=== PATIENT | male | born 1960 | race Two or more races ===

== ENCOUNTER 2020-01-07 09:07 | Outpatient (REF) | payer OTHER, SELFPAY ==
[2020-01-07 14:39] LABS: Alanine Aminotransferase 32 U/L (0-40); Albumin Level 4.4 g/dL (3.5-5.0); Alkaline Phosphatase 106 U/L (39-117); Anion Gap 13 (12-20); Aspartate Amino Transferase 24 U/L (5-37); Bilirubin Total 0.5 mg/dL (0.0-1.0); Blood Urea Nitrogen 13 mg/dL (9-16); Calcium 9.5 mg/dL (8.4-10.2); Carbon Dioxide 27 mmol/L (22-29); Chloride 105 mmol/L (96-108); Estimated Glomerular Filt Rate > 60; Glucose Fasting 119 mg/dL (60-99); Potassium 4.7 mmol/l (3.3-5.1); Sodium 140 mmol/L (135-145); Total Protein 7.9 g/dL (6.5-8.0)
[2020-01-07 14:52] LABS: Vitamin B12 686 pg/mL (200-900)
[2020-01-13 22:47] LABS: Fructosamine 309 umol/L (205-285)
== END 2020-01-07 09:08 | disposition home or self-care (01) ==
LOC: CF 09:07
PROVIDERS: PCP Internal Medicine; Referring Provider Internal Medicine; Visit Provider Internal Medicine Endocrinology, Diabetes & Metabolism
DX: E11.65 Type 2 diabetes mellitus with hyperglycemia (principal); E66.3 Overweight; E55.9 Vitamin D deficiency, unspecified; E78.5 Hyperlipidemia, unspecified; Z79.4 Long term (current) use of insulin; Z79.899 Other long term (current) drug therapy; Z68.27 Body mass index [BMI] 27.0-27.9, adult
CPT/HCPCS: 80053; 82607; 82947; 82985; 99214

== ENCOUNTER 2020-01-29 06:43 | Day surgery (SDC) | payer OTHER, SELFPAY ==
[2020-01-23 16:08] VITALS: BMI 25.0
--- NOTE | 2020-01-28 09:28 | P.CONAN_ITS ---
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 Overweight (BMI 25.0-29.9) Vitamin D deficiency Surgical History Surgical History Hx of colonoscopy Hx of lithotripsy Social History Social History Alcohol intake: never Smoking Status: Never smoker Advance Directives: No Advance Directives Information Provided: No Advance Directives on File: No Meds Allergies Allergy/AdvReac Type Severity Reaction Status Date / Time No Known Allergies Allergy Verified 01/23/20 16:08 [No Known Allergies*] Exam Exam Date and Time: January 28, 2020927 Height,Weight and Vital Signs: Height 5 ft 6 in Weight 70.307 kg Assessment and Plan Assessment Anesthesia Assessment: Chart Reviewed Documented by User: Mary Nash 01/29/20 07:51 [facility] Past Medical History Medical History Depression Diabetes type 2, uncontrolled Dyslipidemia Hx of renal calculi detention (current) use of insulin Overweight (BMI 25.0-29.9) Vitamin D deficiency Surgical History Surgical History Hx of colonoscopy Hx of lithotripsy Social History Social History Alcohol intake: never Smoking Status: Never smoker Advance Directives: No Advance Directives Information Provided: No Advance Directives on File: No Meds Allergies Allergy/AdvReac Type Severity Reaction Status Date / Time No Known Allergies Allergy Verified 01/23/20 16:08 [No Known Allergies*] Exam Airway TM Dist: >3cm Neck ROM: Full Denture: Upper Partial: Lower Heart: RRR Lungs: CTA BL Assessment and Plan Assessment Anesthesia Assessment: Anesthesia Plan Discussed and Chart Reviewed Final Anesthetic Review NPO: Yes ASA Class: II Final Preanesthetic Review: Meds/Allgs Chart Reviewed and Consent Obtained/Reviewed Patient Risk: Intermediate Procedure Risk: Intermediate Anesthetic Plan Disposition: Standard PACU
[2020-01-29 07:43] LABS: Glucose, Whole Blood 137 mg/dL (60-115)
[2020-01-29 07:46] VITALS: BP 123/72; PULSE 65; RESP 16; TEMP 36.1; O2SAT 95
[2020-01-29] MEDS: Lactated Ringers 1,000 ML 100 ML IVCONT (07:59)
--- NOTE | 2020-01-29 08:53 | PM.PROC ---
Brief Operative Note Date of procedure: 01/29/20 Pre-op diagnosis: colon cancer screening Post-op diagnosis: other (Tubular adenomas, Diverticulosis) Procedure: colonoscopy with excisional polypectomy Anesthesia: MAC (Saad) Surgeon: Nely Taveras Estimated blood loss (mL): 10 Pathology: other (polyp--proximal transverse colon, 40cm) Condition: stable Disposition: PACU
[2020-01-29 08:54] VITALS: BP 97/54; PULSE 72; RESP 16; TEMP 36.4; O2SAT 95
[2020-01-29 09:07] VITALS: BP 103/62; PULSE 65; RESP 16; O2SAT 93
[2020-01-29 09:22] VITALS: BP 106/70; PULSE 64; RESP 16; O2SAT 95
--- NOTE | 2020-01-29 09:38 | HO.POSTANES ---
Post Anesthesia Evaluation Post Anesthesia Evaluation Vital Signs: Vital Signs Temp Pulse Resp BP Pulse Ox 01/29/20 09:22 97.5 F 64 16 106/70 95 01/29/20 09:07 65 16 103/62 93 01/29/20 08:54 97.5 F 72 16 97/54 L 95 01/29/20 07:46 96.9 F 65 16 123/72 95 Anesthesia: Monitored Mental Status: Awake Pain Control: Satisfactory Nausea/Vomiting: None Hydration: Adequate Anesthesia-Related Issues: No Anes. Related Issues
--- NOTE | 2020-02-19 11:18 | OP_ITS ---
SURGEON: Nely Taveras MD PROCEDURE PERFORMED: Colonoscopy with excisional polypectomies x2 using cold biopsy forceps. ESTIMATED BLOOD LOSS: Minimal. COMPLICATIONS: No complications. ANESTHESIA: Monitored. ANESTHESIOLOGIST: Mary Nash MD ASSISTANTS:NONE SPECIMENS: Specimens removed, proximal transverse colon, 40 cm polyp. PREOPERATIVE DIAGNOSES: Colon cancer screening, history of tubular adenomas. PRIMARY CARE PROVIDER: Dr. Watkins/Dr. Capone. POSTOPERATIVE DIAGNOSES: Colonic polyps, diverticulosis, Question raised of benign prostatic hyperplasia. NUTRITION DIRECTOR: Dr. Taveras. FINDINGS: Digital rectal exam revealed prostate to be palpable, slightly enlarged, somewhat nodular. Video colonoscope was introduced without difficulty. It was navigated into the rectosigmoid, sigmoid. Scattered diverticula present. There was some generalized bilious tape turbid residue throughout. Scope advanced into descending transverse ascending colon down into the cecum. Appendiceal orifice was seen. Ileocecal valve was seen with some flushing and suctioning. Prep was overall good. Two polyps removed excisionally as defined in the specimen section. Scope was slowly removed. Anorectal verge was clear. PLAN: Current recommendations for repeat asymptomatic screening in this patient will continue at 5 years. OPERATIONS ADVISOR: No assistant professor. GRAFT OR IMPLANTS: No grafts or implants. CONDITION: Postprocedure, stable. Nely Taveras MD MEN/MODL / [id number] MTDD
== END 2020-01-29 09:43 | disposition home or self-care (01) ==
PROVIDERS: PCP Internal Medicine; Visit Provider Internal Medicine Gastroenterology
PROC: 0DJD8ZZ Inspection of Lower Intestinal Tract, Via Natural or Artificial Opening Endoscopic (ICD-10-PCS; CPT 45378; principal; 2020-01-29 08:30)
DX: Z12.11 Encounter for screening for malignant neoplasm of colon (principal); Z86.010 Personal history of colon polyps; D12.3 Benign neoplasm of transverse colon; D12.5 Benign neoplasm of sigmoid colon; K57.30 Diverticulosis of large intestine without perforation or abscess without bleeding; M81.0 Age-related osteoporosis without current pathological fracture; E78.5 Hyperlipidemia, unspecified; E11.9 Type 2 diabetes mellitus without complications; Z79.4 Long term (current) use of insulin; Z79.899 Other long term (current) drug therapy
CPT/HCPCS: 45380; 82947; 88305

== ENCOUNTER → 2020-04-07 08:48 | Outpatient (BNVA) | payer OTHER, SELFPAY | PROVIDERS: PCP Internal Medicine; Visit Provider Internal Medicine Endocrinology, Diabetes & Metabolism | DX: E11.65 Type 2 diabetes mellitus with hyperglycemia (principal); E78.5 Hyperlipidemia, unspecified; Z79.4 Long term (current) use of insulin; E66.3 Overweight; E55.9 Vitamin D deficiency, unspecified | CPT/HCPCS: 82947; 99212 ==

== ENCOUNTER 2020-04-09 10:09 | Outpatient (REF) | payer OTHER, SELFPAY ==
--- NOTE | 2020-04-09 10:15 | XR_ITS ---
EXAMINATION: XR CHEST CLINICAL INFORMATION: Chest pain. COMPARISON: Chest 06/19/2014 TECHNIQUE: 2 views of the chest were obtained. FINDINGS: No significant abnormality is noted involving the heart, lungs, mediastinum, bony thorax or soft tissues. XR/XR chest 2V IMPRESSION: Unremarkable chest examination.
== END 2020-04-09 10:10 | disposition home or self-care (01) ==
LOC: HO.XRAY 10:09
PROVIDERS: PCP Internal Medicine; Visit Provider Internal Medicine
DX: R07.9 Chest pain, unspecified (principal)
CPT/HCPCS: 71046

== ENCOUNTER 2020-08-26 08:28 | Outpatient (REF) | payer OTHER, SELFPAY ==
[2020-08-26 10:32] LABS: Alanine Aminotransferase 41 U/L (0-40); Albumin Level 4.2 g/dL (3.5-5.0); Alkaline Phosphatase 102 U/L (39-117); Anion Gap 11 (12-20); Aspartate Amino Transferase 29 U/L (5-37); Bilirubin Total 0.7 mg/dL (0.0-1.0); Blood Urea Nitrogen 14 mg/dL (9-16); Calcium 9.4 mg/dL (8.4-10.2); Carbon Dioxide 23 mmol/L (22-29); Chloride 109 mmol/L (96-108); Cholesterol 132 mg/dL; Estimated Glomerular Filt Rate > 60; Glucose Random 121 mg/dL (60-115); HDL Cholesterol 40 mg/dL; LDL Cholesterol Calculated 84 mg/dl; Potassium 4.1 mmol/L (3.3-5.1); Sodium 139 mmol/L (135-145); Total Protein 7.5 g/dL (6.5-8.0); Triglycerides 40 mg/dL
[2020-08-26 10:54] LABS: Vitamin B12 460 pg/mL (200-900)
[2020-08-26 11:58] LABS: Microalbum/Creatinine Ratio Ur 24.3 ug/mg cr
[2020-08-27 19:47] LABS: LDL Cholesterol Direct 84 mg/dL (<100)
== END 2020-08-26 08:29 | disposition home or self-care (01) ==
LOC: HO.LAB 08:28
PROVIDERS: PCP Internal Medicine; Visit Provider Internal Medicine Endocrinology, Diabetes & Metabolism
DX: E11.65 Type 2 diabetes mellitus with hyperglycemia (principal); E11.649 Type 2 diabetes mellitus with hypoglycemia without coma; E78.5 Hyperlipidemia, unspecified; E55.9 Vitamin D deficiency, unspecified; Z79.899 Other long term (current) drug therapy; Z79.4 Long term (current) use of insulin
CPT/HCPCS: 36415; 80053; 80061; 82043; 82607; 82947; 83721; 99212

== ENCOUNTER 2020-09-05 07:41 | Emergency (ER) | payer OTHER, SELFPAY ==
--- NOTE | ~2020-09-05 | CT_ITS ---
EXAMINATION: CT ABDOMEN AND PELVIS WITHOUT CONTRAST CLINICAL INFORMATION: Left flank pain. COMPARISON: Renal ultrasound 02/27/2019 and [facility] March 2011. TECHNIQUE: Multidetector volumetric imaging was performed from the superior aspect of the liver through the pubic symphysis. Sagittal and coronal reformatted images were obtained on the technologist's workstation. This CT examination was performed using dose optimization techniques as appropriate, variously including the following: *Automated exposure control *Adjustment of mA and/or kV according to patient size (this includes techniques or standardized protocols for targeted exams where dose is matched to indication/reason for exam; i.e. extremities or head) *Use of iterative reconstruction technique DLP: 488 mGy-cm FINDINGS: LUNG BASES: The visualized lung bases are unremarkable. LIVER, GALLBLADDER, AND BILIARY TREE: There is a 1 cm low-attenuation lesion high in the medial segment of the left lobe of the liver, probably representing a cyst. The liver is otherwise unremarkable. There is a small gallstone in the gallbladder. PANCREAS: Unremarkable. SPLEEN: Unremarkable. ADRENAL GLANDS: Unremarkable. KIDNEYS AND URETERS: There are multiple bilateral renal stones. Largest right renal stone measures 3 mm. Largest left renal stone measures 4 mm in the lower pole. No hydronephrosis, ureteral dilatation or ureteral stone is seen. There is a 1.2 cm low-attenuation lesion in the upper pole of the left kidney may represent a cyst. BLADDER: Unremarkable. GASTROINTESTINAL TRACT: Diverticulosis of the colon. No evidence of diverticulitis. Small and large bowel is otherwise unremarkable. The appendix is unremarkable. ABDOMINAL WALL: Small umbilical hernia containing fat. There are bilateral inguinal hernias containing fat, right greater than left. LYMPH NODES: Normal. VASCULAR: Unremarkable. PELVIC VISCERA: Unremarkable. OSSEOUS STRUCTURES: There are degenerative changes of the spine. CT/CT abdomen pelvis wo con IMPRESSION: Multiple bilateral renal stones. Probable liver cyst. Small gallstones. Diverticulosis of the colon.
--- NOTE | ~2020-09-05 | XR_ITS ---
EXAMINATION: XR SHOULDER, RIGHT CLINICAL INFORMATION: Right shoulder pain COMPARISON: None TECHNIQUE: AP external rotation, Grashey, scapular Y, and axillary views of the right shoulder. FINDINGS: There is loss of right AC joint with periarticular spurring. This could be impinging on the rotator cuff. The glenohumeral joint space is normal. No visible acute fracture, dislocation or subluxation seen. XR/XR shoulder RT min 2V IMPRESSION: Degenerative arthritic changes right AC joint. No visible acute fracture or dislocation seen.
[2020-09-05 07:49] VITALS: BP 123/75; PULSE 78; RESP 16; TEMP 36.8; O2SAT 96; BMI 54.6
--- NOTE | 2020-09-05 07:52 | ED.GENADULT ---
HPI - General Adult General Chief complaint: Abdominal Pain Stated complaint: shoulder pain,flank pain Time Seen by Provider: 09/05/20 07:45 Source: patient Mode of arrival: ambulatory Limitations: no limitations History of Present Illness HPI narrative: Patient comes emergency room complaining of left-sided flank pain for 2 days, intermittent, mild dysuria, no hematuria. Patient states he has had kidney stones in the past and feels about the same. Last night he had kidney stones, he needed lithotripsy. Patient also complaining of right-sided shoulder pain that started 2 months ago. Patient denies injury. Patient states it hurts when he abducts his arm. Patient denies abdominal pain, no fever chills. Related Data Previous Rx's Medication Instructions Recorded pen needle, diabetic 32 gauge x #400 ea 05/23/20 blood-glucose meter #1 ea 06/02/20 FreeStyle Lancets 28 gauge #300 ea NS 08/26/20 atorvastatin 40 mg tablet 40 mg PO DAILY 90 Days #90 tab 08/26/20 blood sugar diagnostic 1 strip MISCELLANEOUS .3 times a 08/26/20 day 90 Days #300 cap cholecalciferol (vitamin D3) 25 25 mcg PO DAILY 90 Days #90 cap 08/26/20 mcg (1,000 unit) capsule cyclobenzaprine 10 mg tablet 10 mg PO TID PRN #30 tab 08/26/20 empagliflozin 25 mg tablet 25 mg PO DAILY 90 Days #90 tab 08/26/20 insulin aspart U-100 100 unit/mL See Rx Instructions SUBCUT TID 30 08/26/20 subcutaneous solution Days #10 ml insulin glargine 100 unit/mL 13 unit SUBCUT QPM 30 Days #10 ml 08/26/20 subcutaneous solution insulin syringe-needle U-100 0.3 See Rx Instructions MISCELLANEOUS 08/26/20 mL 31 gauge x 5/16 QID #120 ea sitagliptin 50 mg-metformin ER 1 tab PO BID 90 Days #180 tab 08/26/20 1,000 mg tablet,extended release 24h mp Allergies Allergy/AdvReac Type Severity Reaction Status Date / Time No Known Allergies Allergy Verified 07/09/20 08:49 [No Known Allergies*] Review of Systems Review of Systems: Constitutional : No Weight loss, No Fever, No Chills, No Night Sweats, No Fatigue, No Malaise ENT/Mouth : No Hearing loss, No Ear Pain, No Nasal Congestion, No Sinus Pain, No Hoarseness, No sore throat, No Rhinorrhea, No Swallowing Difficulty Eyes: No Eye Pain, No Swelling, No Redness, No Foreign Body, No Discharge, No Vision Changes Cardiovascular : No Chest Pain, No SOB, No Dyspnea on Exertion, No Orthopnea, No Edema, No Palpitations Respiratory : No Cough, No Sputum, No Wheezing, No Smoke Exposure, No Dyspnea Gastrointestinal : No Nausea, No Vomiting, No Diarrhea, No Constipation, No abdominal Pain, No Hematochezia, No Melena Genitourinary : no irregular bleeding, mild Dysuria, No Urinary Frequency, No Hematuria, No Urinary Incontinence, No Urgency, No Flank Pain, No Urinary Flow Changes, No Hesitancy, complaining of left-sided flank pain Musculoskeletal : Complaining of chronic right shoulder pain, worse with abduction,, No Myalgias, No Joint Swelling Skin : No Skin Lesions, No rash Neuro : No Weakness, No Numbness, No Paresthesias, No Loss of Consciousness, No Dizziness, No Headache Psych : No Anxiety/Panic, No Depression, No SI/HI/AH/VH, No Social Issues, Heme/Lymph: No Bruising, No Bleeding,No Lymphadenopathy Endocrine : No Polyuria, No Polydipsia, No Temperature Intolerance PMFSH Past Medical History Medical History Depression Diabetes type 2, uncontrolled Dyslipidemia Hx of renal calculi assisted (current) use of insulin Overweight (BMI 25.0-29.9) Vitamin D deficiency Surgical History Hx of colonoscopy Hx of lithotripsy Family History Family History Mother Diabetes Father Alcoholism Social History Social History Alcohol intake: unknown Patient Tobacco Use Status: Tobacco use Unknown Use of substances other than those prescribed or required for medical reasons: Unknown Advance Directives: No Advance Directives Information Provided: No Physical Exam Vital Signs: Vital Signs: Last Vital Signs Temp 98.3 F 09/05/20 11:27 Pulse 74 09/05/20 11:27 Resp 16 09/05/20 11:27 BP 125/75 09/05/20 11:27 Pulse Ox 96 09/05/20 11:27 Body Mass Index 54.6 Appearance: Alert. Oriented X3. No acute distress. Eyes: Pupils equal, round and reactive to light. ENT: Pharynx normal. Neck: Normal inspection. Neck supple. No lymph nodes noted. No crepitus CVS: Normal heart rate and rhythm. Pulses normal. Normal S1 and S2 Respiratory: No respiratory distress. Breath sounds normal. No Wheezing. No rales Abdomen: Soft and nontender. No rigidity. No distention. Back: Positive CVA tenderness on the left side. Skin: Skin warm and dry. Normal skin color. Normal skin turgor. Extremities: No lower extremity edema. Patient has pain to palpation over the acromioclavicular joint, patient is able to abduct his arm but to 30 degrees maximum due to the pain. The shoulder itself is not swollen, not erythematous, septic joint is not suspected Neuro: Oriented X 3. No motor deficit. No sensory deficit. Moving all extermities. No slurred speech. Course Course Course Narrative: I discussed with the patient that he has renal stones, no ureterolithiasis at this time. Chest x-ray shows chronic changes, no acute changes. Patient likely has a rotator cuff injury. I discussed with the patient it is likely that he did pass a renal stone. At this time, no acute pathology. Regarding his shoulder, patient will likely need an MRI, patient will follow-up with his primary care physician. Medical Decision Making Lab Data Result diagrams: 09/05/20 08:11 09/05/20 08:11 Labs: Lab Results 09/05/20 09/05/20 09/05/20 Range/Units 08:11 08:11 10:56 WBC 6.0 (4.8-10.8) X10*3/uL RBC 5.20 (4.60-5.80) X10*6/uL Hgb 15.3 (14.0-18.0) g/dl Hct 47.1 (42-52) % MCV 90.6 (80-98) fL MCH 29.4 (27.0-33.0) pg MCHC 32.5 (31.0-36.0) g/dl RDW 14.4 (11.0-16.0) % Plt Count 266 (160-400) X10*3/uL MPV 9.4 (9.4-12.4) fL Immature Gran % (Auto) 0.2 (0.0-0.4) % Neut % (Auto) 62.2 (45-73) % Lymph % (Auto) 24.7 (20-40) % [place] % (Auto) 10.4 (2-11) % Eos % (Auto) 2.0 (0-4) % Baso % (Auto) 0.5 (0-2) % Lymph # (Auto) 1.5 (1.2-4.9) X10*3/uL [place] # (Auto) 0.6 (0.1-1.2) X10*3/uL Eos # (Auto) 0.1 (0.0-0.4) X10*3/uL Baso # (Auto) 0.0 (0.0-0.2) X10*3/uL Abs Immat Gran (auto) 0.01 (0.00-0.03) X10*3/uL Absolute Neuts (auto) 3.7 (2.0-8.3) X10*3/uL Absolute Nucleated RBC 0.000 (0.0-0.012) X10*3/uL Nucleated RBC % (auto) 0.0 (0.0-0.2) /100WBC Sodium 140 (135-145) mmol/L Potassium 4.3 (3.3-5.1) mmol/L Chloride 109 H (96-108) mmol/L Carbon Dioxide 23 (22-29) mmol/L Anion Gap 12 (12-20) BUN 17 H (9-16) mg/dL Creatinine 0.79 (0.5-1.4) mg/dL Estim Creat Clear Calc 145.6 Estimated GFR > 60 Random Glucose 159 H (60-115) mg/dL Calcium 9.5 (8.4-10.2) mg/dL Total Bilirubin 0.6 (0.0-1.0) mg/dL Direct Bilirubin 0.2 (0.0-0.5) mg/dL AST 26 (5-37) U/L ALT 35 (0-40) U/L Alkaline Phosphatase 110 (39-117) U/L Total Protein 7.6 (6.5-8.0) g/dL Albumin 4.1 (3.5-5.0) g/dL Urine Color STRAW Urine Appearance CLEAR Urine pH 6.0 (5.0-8.0) Ur Specific [place] 1.020 (1.005-1.025) Urine Protein NEG (NEG-TRACE) MG/DL Urine Glucose (UA) >=1000 H (NEG) MG/DL Urine Ketones NEG (NEG) MG/DL Urine Blood NEG (NEG) Urine Nitrite NEG (NEG) Ur Leukocyte Esterase NEG (NEG) Imaging Data CT scan - abdomen: Radiologist's impression: FINDINGS: LUNG BASES: The visualized lung bases are unremarkable. LIVER, GALLBLADDER, AND BILIARY TREE: There is a 1 cm low-attenuation lesion high in the medial segment of the left lobe of the liver, probably representing a cyst. The liver is otherwise unremarkable. There is a small gallstone in the gallbladder. PANCREAS: Unremarkable. SPLEEN: Unremarkable. ADRENAL GLANDS: Unremarkable. KIDNEYS AND URETERS: There are multiple bilateral renal stones. Largest right renal stone measures 3 mm. Largest left renal stone measures 4 mm in the lower pole. No hydronephrosis, ureteral dilatation or ureteral stone is seen. There is a 1.2 cm low-attenuation lesion in the upper pole of the left kidney may represent a cyst. BLADDER: Unremarkable. GASTROINTESTINAL TRACT: Diverticulosis of the colon. No evidence of diverticulitis. Small and large bowel is otherwise unremarkable. The appendix is unremarkable. ABDOMINAL WALL: Small umbilical hernia containing fat. There are bilateral inguinal hernias containing fat, right greater than left. LYMPH NODES: Normal. VASCULAR: Unremarkable. PELVIC VISCERA: Unremarkable. OSSEOUS STRUCTURES: There are degenerative changes of the spine. CT/CT abdomen pelvis wo con IMPRESSION: Multiple bilateral renal stones. Probable liver cyst. Small gallstones. Diverticulosis of the colon. Chest x-ray: Radiologist's impression: TECHNIQUE: AP external rotation, Grashey, scapular Y, and axillary views of the right shoulder. FINDINGS: There is loss of right AC joint with periarticular spurring. This could be impinging on the rotator cuff. The glenohumeral joint space is normal. No visible acute fracture, dislocation or subluxation seen. XR/XR shoulder RT min 2V IMPRESSION: Degenerative arthritic changes right AC joint. No visible acute fracture or dislocation seen. Discharge Plan Discharge Clinical Impression: Acute flank pain, Chronic right shoulder pain Patient Disposition: Home, Self-Care Instructions: Flank Pain (ED), Shoulder Pain (ED) Additional Instructions: Please follow-up with your primary care physician tomorrow. If you have any worsening or new symptoms, please return to the emergency room or call 911 Prescriptions: No Action (DME) pen needle, diabetic [BD Bharati 2nd Gen Pen Needle] 32 gauge x 5/32 needle See Rx Instructions .MEDSUPPLY Qty: 400 RF: 4 (DME) blood-glucose meter [FreeStyle Lite Meter] Kit See Rx Instructions .ROUTE .MEDSUPPLY Qty: 1 RF: 0 cyclobenzaprine 10 mg tablet 10 mg PO TID PRN (Reason: muscle spasm) Qty: 30 RF: 2 FreeStyle Lite Strips Strip 1 strip miscellaneous .3 times a day 90 Days Qty: 300 RF: 6 atorvastatin 40 mg tablet 40 mg PO DAILY 90 Days Qty: 90 RF: 1 cholecalciferol (vitamin D3) 25 mcg (1,000 unit) capsule 25 mcg PO DAILY 90 Days Qty: 90 RF: 1 Jardiance 25 mg tablet 25 mg PO DAILY 90 Days Qty: 90 RF: 1 insulin aspart U-100 [Novolog U-100 Insulin aspart] 100 unit/mL solution See Rx Instructions subcut TID 30 Days Qty: 10 RF: 6 (DME) lancets [FreeStyle Lancets] 28 gauge misc See Rx Instructions .MEDSUPPLY Qty: 300 RF: 2 Lantus U-100 Insulin 100 unit/mL solution 13 unit subcut QPM 30 Days Qty: 10 RF: 6 insulin syringe-needle U-100 [BD Insulin Syringe Ultra-Fine] 0.3 mL 31 gauge x 5/16 syringe See Rx Instructions miscellaneous QID Qty: 120 RF: 6 Janumet XR 50-1,000 mg tablet, ER multiphase 24 hr 1 tab PO BID 90 Days Qty: 180 RF: 1
[2020-09-05 08:15] LABS: MANUAL DIFF FLAG NO
[2020-09-05 08:16] LABS: Basophils Percent Auto 0.5 % (0-2); Eosinophils Absolute Auto 0.1 X10*3/uL (0.0-0.4); Hematocrit 47.1 % (42-52); Hemoglobin 15.3 g/dl (14.0-18.0); Imm Gran Abs Auto 0.01 X10*3/uL (0.00-0.03); Imm Gran Pct Auto 0.2 % (0.0-0.4); Lymphocytes Absolute Auto 1.5 X10*3/uL (1.2-4.9); Lymphocytes Percent Auto 24.7 % (20-40); Mean Corpuscular HGB Conc 32.5 g/dl (31.0-36.0); Mean Corpuscular Hemoglobin 29.4 pg (27.0-33.0); Mean Corpuscular Volume 90.6 fL (80-98); Mean Platelet Volume 9.4 fL (9.4-12.4); Monocytes Absolute Auto 0.6 X10*3/uL (0.1-1.2); Monocytes Percent Auto 10.4 % (2-11); Neutrophils Absolute Auto 3.7 X10*3/uL (2.0-8.3); Neutrophils Percent Auto 62.2 % (45-73); Platelet Count 266 X10*3/uL (160-400); Red Cell Distribution Width 14.4 % (11.0-16.0)
[2020-09-05 08:57] LABS: Alanine Aminotransferase 35 U/L (0-40); Albumin Level 4.1 g/dL (3.5-5.0); Alkaline Phosphatase 110 U/L (39-117); Anion Gap 12 (12-20); Aspartate Amino Transferase 26 U/L (5-37); Bilirubin Direct 0.2 mg/dL (0.0-0.5); Bilirubin Total 0.6 mg/dL (0.0-1.0); Blood Urea Nitrogen 17 mg/dL (9-16); Calcium 9.5 mg/dL (8.4-10.2); Carbon Dioxide 23 mmol/L (22-29); Chloride 109 mmol/L (96-108); Creatinine Clr Calc Pharmacy 145.6; Estimated Glomerular Filt Rate > 60; Glucose Random 159 mg/dL (60-115); Potassium 4.3 mmol/L (3.3-5.1); Sodium 140 mmol/L (135-145); Total Protein 7.6 g/dL (6.5-8.0)
[2020-09-05 11:13] LABS: Glucose Urine UA >=1000 MG/DL (NEG); Leukocyte Esterase Urine NEG (NEG); Nitrite Urine NEG (NEG); Urine Blood NEG (NEG); Urine Ketones NEG (NEG); Urine Protein NEG (NEG-TRACE)
[2020-09-05 11:15] LABS: Appearance Urine CLEAR; Color Urine STRAW
[2020-09-05 11:27] VITALS: BP 125/75; PULSE 74; RESP 16; TEMP 36.8; O2SAT 96
[2020-09-05 11:30] LABS: Calcium Phosphate Crystals Ur TRACE /LPF; RBC Urine 0-2 /HPF (0); WBC Urine 0 /HPF (0-4)
[2020-09-05 11:47] VITALS: BP 123/76; PULSE 68; RESP 16; O2SAT 97
[2020-09-05] MEDS: Acetaminophen 325 MG TABLET 650 MG PO (11:47)
== END 2020-09-05 12:05 | disposition home or self-care (01) ==
PROVIDERS: Emergency Provider Emergency Medicine; PCP Internal Medicine
DX: R10.9 Unspecified abdominal pain (principal); G89.29 Other chronic pain; M25.511 Pain in right shoulder; E11.9 Type 2 diabetes mellitus without complications; Z79.4 Long term (current) use of insulin; Z87.442 Personal history of urinary calculi
CPT/HCPCS: 36415; 73030; 74176; 80048; 80076; 81001; 81003; 85025; 99284

== ENCOUNTER 2020-09-26 07:52 | Outpatient (REF) | payer OTHER, SELFPAY ==
[2020-09-26 08:07] LABS: MANUAL DIFF FLAG NO
[2020-09-26 08:09] LABS: Basophils Percent Auto 0.6 % (0-2); Eosinophils Absolute Auto 0.2 X10*3/uL (0.0-0.4); Eosinophils Percent Auto 2.5 % (0-4); Hematocrit 47.6 % (42-52); Hemoglobin 15.3 g/dl (14.0-18.0); Imm Gran Abs Auto 0.04 X10*3/uL (0.00-0.03); Imm Gran Pct Auto 0.6 % (0.0-0.4); Lymphocytes Absolute Auto 1.5 X10*3/uL (1.2-4.9); Lymphocytes Percent Auto 23.5 % (20-40); Mean Corpuscular HGB Conc 32.1 g/dl (31.0-36.0); Mean Corpuscular Hemoglobin 29.3 pg (27.0-33.0); Mean Platelet Volume 9.7 fL (9.4-12.4); Monocytes Absolute Auto 0.6 X10*3/uL (0.1-1.2); Monocytes Percent Auto 9.8 % (2-11); Neutrophils Absolute Auto 4.1 X10*3/uL (2.0-8.3); Platelet Count 280 X10*3/uL (160-400); Red Blood Count 5.23 X10*6/uL (4.60-5.80); Red Cell Distribution Width 14.3 % (11.0-16.0); White Blood Count 6.5 X10*3/uL (4.8-10.8)
[2020-09-26 08:47] LABS: Alanine Aminotransferase 36 U/L (0-40); Albumin Level 4.1 g/dL (3.5-5.0); Alkaline Phosphatase 115 U/L (39-117); Anion Gap 13 (12-20); Aspartate Amino Transferase 30 U/L (5-37); Bilirubin Total 0.8 mg/dL (0.0-1.0); Blood Urea Nitrogen 12 mg/dL (9-16); Calcium 9.6 mg/dL (8.4-10.2); Carbon Dioxide 26 mmol/L (22-29); Chloride 106 mmol/L (96-108); Cholesterol 126 mg/dL; Estimated Glomerular Filt Rate > 60; Glucose Fasting 168 mg/dL (60-99); HDL Cholesterol 38 mg/dL; LDL Cholesterol Calculated 77 mg/dl; Potassium 4.5 mmol/L (3.3-5.1); Sodium 140 mmol/L (135-145); Total Protein 7.7 g/dL (6.5-8.0); Triglycerides 55 mg/dL
[2020-09-26 08:48] LABS: Estimated Average Glucose 166 mg/dL; Hemoglobin A1c % 7.4 %
== END 2020-09-26 07:53 | disposition home or self-care (01) ==
LOC: HO.LAB 07:52
PROVIDERS: Visit Provider Internal Medicine
DX: Z00.00 Encounter for general adult medical examination without abnormal findings (principal); E11.9 Type 2 diabetes mellitus without complications
CPT/HCPCS: 36415; 80053; 80061; 83036; 85025

== ENCOUNTER 2020-12-10 12:00 | Outpatient (RCR) | payer OTHER, SELFPAY ==
--- NOTE | 2020-10-31 14:29 | MHC.PT.EP ---
[facility] [place] [address] Office [place] Office [address] [phone] F: [phone] F: [phone] F: [phone] F: [phone] Physical Therapy Plan of Care Date of Evaluation: Date of Surgery: Diagnosis: Pain in unspecified shoulder R shoulder impingement Assessment: Pt is a 60yo M who presents to PT with chronic R shoulder pain. He denies radiating symptoms into UE. Pt presents with current impairments in pain, ROM, strength, endurance, soft tissue restrictions, and posture. He is limited functionally by reaching forward, placing his hand behind his head, and sleeping. His signs and symptoms may be consistent with R shoulder impingement. He is a good candidate for skilled PT services to address current impairments and to facilitate return to PLOF. Frequency and Duration: The patient will be seen 2x/week for 4 weeks Short Term Goals: Pt will be I with HEP to promote self management of symptoms. Pt will report pain < 8/10 after functional mobility Director Of Strategic Programs Goals: Pt will demonstrate full, R shoulder ROM to improve function and QOL. Pt will perform ADLs I with pain < 6/10. Treatment Plan: Modalities to reduce pain, spasms and effusion. Manual therapy to restore motion and function. Therapeutic exercise to improve strength and flexibility. Neuromuscular re-education for posture and balance. Therapeutic activities to return to functional activities of daily living. Electronically signed by: Caroline Best, PT, DPT Please sign and return to therapist. Thank you for your referral.
--- NOTE | 2020-12-15 10:32 | MHC.PT.DC ---
[facility] [place] Office [place] Office [place] Office [address] [phone] F: [phone] F: [phone] F: [phone] F: [phone] Physical Therapy Discharge Report Diagnosis: Pain in unspecified shoulder R shoulder impingement Date of Surgery: Date of Evaluation: 10/31/20 Date of Discharge: 12/15/20 Treatments to Date: 7 Cancellations to Date: 1 No Shows to Date: 1 Discharge Status: Achieved Goals Improved Function Independent with HEP Discharge Summary: Pt last PT visit was 12/10/20. Pt made good progress since SOC. He demonstrated improvements in R shoulder ROM and strength and also had a decrease in pain. He is being D/C from skilled PT services as he has met most of his STGs and made good progress toward his LTGs. He is I with HEP and was provided with updated HEP with GTB on last PT visit. Electronically signed by: Caroline Best, PT, DPT Please sign and return to therapist. Thank you for your referral.
== END 2020-12-15 10:33 | disposition home or self-care (01) ==
LOC: HO.PT 12:00
PROVIDERS: PCP Internal Medicine; Visit Provider Internal Medicine
DX: M25.511 Pain in right shoulder (principal)
CPT/HCPCS: 97110; 97150; 97161; 97530

== ENCOUNTER 2020-12-25 07:57 | Outpatient (REF) | payer OTHER, SELFPAY ==
[2020-12-25 10:54] LABS: Creatinine Urine 72.56 mg/dL; Microalbum/Creatinine Ratio Ur 37.2 ug/mg cr
== END 2020-12-25 07:58 | disposition home or self-care (01) ==
LOC: HO.10HDL 07:57
PROVIDERS: Visit Provider Internal Medicine
DX: E11.9 Type 2 diabetes mellitus without complications (principal)
CPT/HCPCS: 82043

== ENCOUNTER → 2020-12-26 07:52 | Outpatient (BNVA) | payer OTHER, SELFPAY | PROVIDERS: PCP Internal Medicine; Visit Provider Nurse Practitioner Gerontology | DX: E11.649 Type 2 diabetes mellitus with hypoglycemia without coma (principal); E78.5 Hyperlipidemia, unspecified; E55.9 Vitamin D deficiency, unspecified; Z79.4 Long term (current) use of insulin | CPT/HCPCS: 82947; 83036; 99212 ==

== ENCOUNTER → 2021-02-02 08:41 | Outpatient (BNVA) | payer OTHER, SELFPAY | PROVIDERS: PCP Internal Medicine; Visit Provider Orthopaedic Surgery | DX: M67.911 Unspecified disorder of synovium and tendon, right shoulder (principal); E11.649 Type 2 diabetes mellitus with hypoglycemia without coma; Z79.4 Long term (current) use of insulin | CPT/HCPCS: 20610; 99202; J1100 ==

== ENCOUNTER 2021-02-25 14:34 | Outpatient (REF) | payer OTHER, SELFPAY ==
--- NOTE | ~2021-02-25 | MR_ITS ---
EXAMINATION: MR SHOULDER WITHOUT CONTRAST, RIGHT CLINICAL INFORMATION: Right shoulder pain. Clicking, limited range of motion. COMPARISON: Right shoulder radiographs dated 09/05/2020. TECHNIQUE: MRI of the shoulder without contrast was performed on a high-field scanner. FINDINGS: ROTATOR CUFF: Supraspinatus and infraspinatus tendinosis with full-thickness partial tearing through the posterior tendon fibers which extends into the anterior aspect of the infraspinatus tendon. Overall, tearing measures 1.7 x 2.0 cm (AP by ML). No muscle atrophy or fatty infiltration. BICEPS: Normal. CORACOACROMIAL ARCH: The undersurface of the acromion is curved with small subacromial spurs. Moderate acromioclavicular osteoarthritis. LABRUM/CAPSULE: Nondisplaced undersurface tear of the posterosuperior labrum with degenerative signal in the superior labrum. Intact joint capsule. GLENOHUMERAL JOINT/MARROW: Glenoid articular cartilage signal heterogeneity. Tiny marginal osteophytes. Small joint effusion. MR/MR shoulder RT wo con IMPRESSION: 1. Supraspinatus and infraspinatus tendinosis with full-thickness partial tearing involving the posterior supraspinatus tendon with mild extension into the anterior aspect of the infraspinatus tendon. Tearing measures 1.7 x 2.0 cm (AP by ML). 2. Moderate acromioclavicular osteophyte arthritis with small lateral subchondral spurs. 3. Nondisplaced undersurface tear of the posterosuperior labrum. Degenerative signal within the superior labrum. 4. Minimal glenohumeral arthrosis. Small joint effusion.
== END 2021-02-25 14:35 | disposition home or self-care (01) ==
LOC: HO.MRI 14:34
PROVIDERS: PCP Internal Medicine; Visit Provider Orthopaedic Surgery
DX: M67.911 Unspecified disorder of synovium and tendon, right shoulder (principal)
CPT/HCPCS: 73221

== ENCOUNTER → 2021-04-06 12:02 | Outpatient (BNVA) | payer OTHER, SELFPAY | PROVIDERS: Visit Provider Orthopaedic Surgery | DX: M75.120 Complete rotator cuff tear or rupture of unspecified shoulder, not specified as traumatic (principal); E11.69 Type 2 diabetes mellitus with other specified complication; E78.5 Hyperlipidemia, unspecified | CPT/HCPCS: 99212 ==

== ENCOUNTER 2021-04-17 09:00 | Outpatient (REF) | payer OTHER, SELFPAY | END 2021-04-17 09:01 | disposition home or self-care (01) | LOC: HO.10HDL 09:00 | PROVIDERS: Visit Provider Nurse Practitioner Gerontology | DX: E55.9 Vitamin D deficiency, unspecified (principal) | CPT/HCPCS: 36415; 82306 ==

== ENCOUNTER 2021-04-21 08:36 | Outpatient (REF) | payer OTHER, SELFPAY ==
[2021-04-21 10:28] LABS: MANUAL DIFF FLAG NO
[2021-04-21 10:47] LABS: Basophils Percent Auto 0.5 % (0-2); Eosinophils Absolute Auto 0.1 X10*3/uL (0.0-0.4); Eosinophils Percent Auto 1.7 % (0-4); Hematocrit 47.6 % (42.0-52.0); Imm Gran Abs Auto 0.01 X10*3/uL (0.00-0.03); Imm Gran Pct Auto 0.2 % (0.0-0.4); Lymphocytes Absolute Auto 1.3 X10*3/uL (1.2-4.9); Lymphocytes Percent Auto 19.2 % (20-40); Mean Corpuscular HGB Conc 31.5 g/dl (31.0-36.0); Mean Corpuscular Hemoglobin 29.1 pg (27.0-33.0); Mean Corpuscular Volume 92.2 fL (80.0-98.0); Mean Platelet Volume 10.2 fL (9.4-12.4); Monocytes Absolute Auto 0.7 X10*3/uL (0.1-1.2); Monocytes Percent Auto 10.1 % (2-11); Neutrophils Absolute Auto 4.5 x10*3/uL (2.0-8.3); Neutrophils Percent Auto 68.3 % (45-73); Platelet Count 279 X10*3/uL (160-400); Red Blood Count 5.16 X10*6/uL (4.60-5.80); Red Cell Distribution Width 14.9 % (11.0-16.0); White Blood Count 6.6 X10*3/uL (4.8-10.8)
[2021-04-21 10:59] LABS: Alanine Aminotransferase 31 U/L (0-40); Albumin Level 4.1 g/dL (3.5-5.0); Alkaline Phosphatase 114 U/L (39-117); Anion Gap 10 (12-20); Aspartate Amino Transferase 25 U/L (5-37); Bilirubin Total 0.4 mg/dL (0.0-1.0); Blood Urea Nitrogen 19 mg/dL (9-16); Calcium 9.5 mg/dL (8.4-10.2); Carbon Dioxide 24 mmol/L (22-29); Chloride 111 mmol/L (96-108); Cholesterol 123 mg/dL; Estimated Glomerular Filt Rate > 60; Glucose Fasting 140 mg/dL (60-99); HDL Cholesterol 37 mg/dL; LDL Cholesterol Calculated 79 mg/dl; Potassium 4.3 mmol/L (3.3-5.1); Sodium 141 mmol/L (135-145); Total Protein 7.5 g/dL (6.5-8.0); Triglycerides 35 mg/dL
[2021-04-21 11:12] LABS: Creatinine Urine 64.51 mg/dL
[2021-04-21 11:16] LABS: Estimated Average Glucose 157 mg/dL; Hemoglobin A1c % 7.1 %
[2021-04-21 11:19] LABS: Thyroid Stimulating Hormone 0.93 uIU/mL (0.32-4.0)
== END 2021-04-21 08:37 | disposition home or self-care (01) ==
LOC: HO.10HDL 08:36
PROVIDERS: Visit Provider Internal Medicine
DX: Z00.00 Encounter for general adult medical examination without abnormal findings (principal); Z13.0 Encounter for screening for diseases of the blood and blood-forming organs and certain disorders involving the immune mechanism; E11.9 Type 2 diabetes mellitus without complications
CPT/HCPCS: 36415; 80053; 80061; 82043; 83036; 84443; 85025

== ENCOUNTER → 2021-05-14 12:55 | Outpatient (BNVA) | payer OTHER, SELFPAY | PROVIDERS: PCP Internal Medicine; Visit Provider Physician Assistant | DX: M75.120 Complete rotator cuff tear or rupture of unspecified shoulder, not specified as traumatic (principal) | CPT/HCPCS: 99212 ==

== ENCOUNTER 2021-05-20 10:53 | Day surgery (SDC) | payer OTHER, SELFPAY ==
--- NOTE | 2021-05-19 10:57 | HO.ANESPROP2 ---
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 (Acute) Dyslipidemia (Acute) Diabetes type 2, uncontrolled (Acute) Past Medical History Medical History Depression Diabetes type 2, uncontrolled Dyslipidemia Hx of renal calculi Hyperlipidemia associated with type 2 diabetes mellitus 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 Overweight (BMI 25.0-29.9) Vitamin D deficiency Family History Family History Mother Diabetes Father Alcoholism Surgical History Surgical History Hx of colonoscopy Hx of lithotripsy Social History Social History Housing: Apartment Alcohol intake: never Patient Tobacco Use Status: Never used Tobacco e-Cigarette/Vaping Use: Never Used Second Hand Smoke Exposure: No Are you DNR?: No Advance Directives: No Advance Directives Information Provided: Yes service: No Current occupational status: disabled Current occupation: rt handed Cognitive needs: No Hearing needs: No Vision needs: No Meds Allergies Allergy/AdvReac Type Severity Reaction Status Date / Time No Known Allergies Allergy Verified 05/14/21 13:15 [No Known Allergies*] Home Medications Medication Instructions Recorded Confirmed Last Taken Type bupropion HCl 150 mg 24 hr tablet, 150 mg PO BEDTIME 04/17/21 05/13/21 Unknown History extended release zolpidem 10 mg tablet 10 mg PO BEDTIME PRN 04/17/21 05/13/21 Unknown History bupropion HCl 150 mg 24 hr tablet, 1 tab PO BEDTIME 05/20/21 05/20/21 05/20/21 History extended release Exam Exam Date and Time: May 19, 2021 1057 Pertinent Lab Results Pertinent Lab Results: Laboratory Tests 04/21/21 04/21/21 08:38 08:38 WBC 6.6 Hgb 15.0 Hct 47.6 Plt Count 279 Sodium 141 Potassium 4.3 Chloride 111 H Carbon Dioxide 24 BUN 19 H Creatinine 0.80 Laboratory Tests 04/21/21 08:38 Hemoglobin A1c % 7.1 Assessment and Plan Assessment Anesthesia Assessment: Chart Reviewed Documented by User: Chetan Verdin MD 05/20/21 14:58 PMFSH Past Medical History Medical History Depression Diabetes type 2, uncontrolled Dyslipidemia Hx of renal calculi Hyperlipidemia associated with type 2 diabetes mellitus 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 Overweight (BMI 25.0-29.9) Vitamin D deficiency Family History Family History Mother Diabetes Father Alcoholism Family history of problems with anesthesia: No Surgical History Surgical History Hx of colonoscopy Hx of lithotripsy History of Problems with Anesthesia: No Social History Social History Housing: Apartment Alcohol intake: never Patient Tobacco Use Status: Never used Tobacco e-Cigarette/Vaping Use: Never Used Second Hand Smoke Exposure: No Are you DNR?: No Advance Directives: No Advance Directives Information Provided: Yes service: No Current occupational status: disabled Current occupation: rt handed Cognitive needs: No Hearing needs: No Vision needs: No Meds Allergies Allergy/AdvReac Type Severity Reaction Status Date / Time No Known Allergies Allergy Verified 05/14/21 13:15 [No Known Allergies*] Home Medications Medication Instructions Recorded Confirmed Last Taken Type bupropion HCl 150 mg 24 hr tablet, 150 mg PO BEDTIME 04/17/21 05/13/21 Unknown History extended release zolpidem 10 mg tablet 10 mg PO BEDTIME PRN 04/17/21 05/13/21 Unknown History bupropion HCl 150 mg 24 hr tablet, 1 tab PO BEDTIME 05/20/21 05/20/21 05/20/21 History extended release Exam Airway Mallampati Class: II TM Dist: >3cm Neck ROM: Full Partial: Upper and Lower Loose/Missing/Broken Teeth: Yes (Extremly poor dentation . Patient's remaining teeth loose and poor condition ) Heart: rrr Lungs: bl breath sounds Assessment and Plan Assessment Anesthesia Assessment: Anesthesia Plan Discussed Final Anesthetic Review Family History of Problems with Anesthesia: No History of Problems with Anesthesia: No NPO: Yes ASA Class: III Final Preanesthetic Review: Meds/Allgs Chart Reviewed, Consent Obtained/Reviewed and Anes Risks/Benef Reviewed Patient Risk: Intermediate Procedure Risk: Intermediate Anesthetic Plan Anesthetic Plan: GA and Regional Block Disposition: Standard PACU
--- NOTE | 2021-05-20 08:11 | MHC.SHP ---
Pre-Procedural Eval Section A Date of Service: 05/20/21 The patient is an INPATIENT: No Changes since office visit: Yes Patient answered all questions; No Cold of Flu in the past 2 weeks, No New Medical Problems and No Changes in Medication The History & Physical has been completed within 30 days and I have reviewed it.: Yes Section B Chief Complaint: rotator tear Allergies: Allergies Allergy/AdvReac Type Severity Reaction Status Date / Time No Known Allergies Allergy Verified 05/14/21 13:15 [No Known Allergies*] Plan I have reviewed the history and physical and performed a pertinent physical examination on my patient. No changes have occurred unless specified.
[2021-05-20 11:01] VITALS: BP 155/67; PULSE 67; RESP 18; TEMP 36; O2SAT 98; BMI 23.6
[2021-05-20 11:18] LABS: Glucose, Whole Blood 109 mg/dL (60-115)
[2021-05-20] MEDS: Lactated Ringers 1,000 ML 100 ML IVCONT (11:31)
[2021-05-20 15:15] VITALS: BP 127/68; PULSE 54; RESP 18; TEMP 36.4; O2SAT 96
[2021-05-20 15:20] VITALS: BP 111/62; PULSE 60; RESP 22; O2SAT 94
[2021-05-20 15:24] VITALS: BP 118/64; PULSE 55; RESP 24; O2SAT 94
[2021-05-20 15:30] VITALS: BP 112/63; PULSE 55; RESP 24; O2SAT 94
[2021-05-20 16:00] VITALS: BP 133/70; PULSE 57; RESP 16; O2SAT 96
--- NOTE | 2021-05-20 17:18 | P.BOP_ITS ---
Brief Operative Note Date of Service: 05/20/21 Pre-op diagnosis: Right rotator cuff tear Post-op diagnosis: same Procedure: Right rtc repair and SAD Implants: [employer] medial row helacoil x2 and lateral row knotless helacoil Surgeon: Mike Leroy MD Anesthesia: GETA Was an Supervisor Metal Cans used for this Procedure?: Yes Supervisor Metal Cans: Cris Mccrary Estimated blood loss (mL): 20 IV fluids (mL): 1,000 Pathology: none sent Condition: stable Disposition: PACU
--- NOTE | 2021-05-25 16:51 | P.OP_ITS ---
Operative Note Operative Note Date of Service: 05/20/21 Narrative: Pre-op diagnosis: Right rotator cuff tear Post-op diagnosis: same Procedure: Right rtc repair and SAD Implants: [employer] medial row helacoil x2 and lateral row knotless helacoil Surgeon: Mike Leroy MD Anesthesia: GETA Was an Chief Medical Director used for this Procedure?: Yes Chief Medical Director: Cris Mccrary Estimated blood loss (mL): 20 IV fluids (mL): 1,000 Pathology: none sent Condition: stable Disposition: PACU Procedure in detail: Patient was brought to the operating room and placed the the beach chair position. All bony prominences were well padded and the limb was prepped and draped in standard sterile fashion. A time out was called to identify proper site, proper procedure and proper surgeon. IV antibiotics per weight were administered. I began by making a posterolateral stab incision with a 15 blade. A blunt trochar was placed into the glenohumeral joint and I insufflated the joint with saline and a 30 degree arthroscope was placed. I established an outside- in anterior portal just distal to the biceps tendon. I then began my inspection of the glenohumeral joint. There were grade 1 changes of the glenohumeral joint and some synovitis of the anterior interval and superior labrum. This was debr ided with cautery. The biceps tendon and labrum was intact. The gutter was clean and there was a full-thickness undersurface rotator cuff tear of the supraspinatus. I then removed the trochar and entered the subacromial space. A direct lateral portal was then established and I performed a bursectomy. The cuff was then examined. Again a full-thickness tear of the supraspinatus with some moderate retraction but crescentic was identified. I used a bur to debride the footprint down to bleeding bone and then placed 2 medial row anchors. Using a scorpion device to deliver the sutures through the crescentic tear and then using a crossing bridge technique tied these down to 2 lateral anchors. I had excellent reproduction of the normal anatomy of the supraspinatus. I then performed a 5 mm subacromial decompression. Once I was satisfied with the repair final images were captured and I removed all instrumentation. Portals were closed with nylon. Patient was placed in an abduction sling, extubated and brought to the recovery room in stable condition. There were no known complications.
== END 2021-05-20 16:25 | disposition home or self-care (01) ==
LOC: HO.SSS 10:54
PROVIDERS: PCP Internal Medicine Geriatric Medicine; Visit Provider Orthopaedic Surgery
PROC: (CPT 29827; principal; 2021-05-20 13:50)
DX: M75.121 Complete rotator cuff tear or rupture of right shoulder, not specified as traumatic (principal); M65.811 Other synovitis and tenosynovitis, right shoulder; E11.9 Type 2 diabetes mellitus without complications; E78.5 Hyperlipidemia, unspecified; F32.9 Major depressive disorder, single episode, unspecified; E55.9 Vitamin D deficiency, unspecified; Z79.4 Long term (current) use of insulin; Z87.442 Personal history of urinary calculi
CPT/HCPCS: 29827; 29826; 82947; C1713; J0171; J0690; J1100; J2250; J2405; J3010

== ENCOUNTER → 2021-05-25 10:55 | Outpatient (BNVA) | payer OTHER, SELFPAY | PROVIDERS: PCP Internal Medicine Geriatric Medicine; Visit Provider Physician Assistant | DX: Z98.890 Other specified postprocedural states (principal) | CPT/HCPCS: 99212 ==

== ENCOUNTER → 2021-06-19 08:05 | Outpatient (BNVA) | payer OTHER, SELFPAY | PROVIDERS: PCP Internal Medicine; Visit Provider Nurse Practitioner Gerontology | DX: E11.649 Type 2 diabetes mellitus with hypoglycemia without coma (principal); E78.5 Hyperlipidemia, unspecified; E55.9 Vitamin D deficiency, unspecified; Z79.4 Long term (current) use of insulin | CPT/HCPCS: 82947; 99212 ==

== ENCOUNTER → 2021-06-22 10:43 | Outpatient (BNVA) | payer OTHER, SELFPAY | PROVIDERS: PCP Internal Medicine; Visit Provider Physician Assistant | DX: Z47.89 Encounter for other orthopedic aftercare (principal); Z98.890 Other specified postprocedural states | CPT/HCPCS: 99212 ==

== ENCOUNTER 2021-07-28 08:05 | Outpatient (REF) | payer OTHER, SELFPAY ==
[2021-07-28 08:30] LABS: MANUAL DIFF FLAG NO
[2021-07-28 08:54] LABS: Basophils Percent Auto 0.5 % (0-2); Eosinophils Absolute Auto 0.2 X10*3/uL (0.0-0.4); Eosinophils Percent Auto 2.4 % (0-4); Hemoglobin 14.9 g/dl (14.0-18.0); Imm Gran Abs Auto 0.02 X10*3/uL (0.00-0.03); Imm Gran Pct Auto 0.3 % (0.0-0.4); Lymphocytes Absolute Auto 1.4 X10*3/uL (1.2-4.9); Mean Corpuscular HGB Conc 31.7 g/dl (31.0-36.0); Mean Corpuscular Hemoglobin 28.8 pg (27.0-33.0); Mean Corpuscular Volume 90.9 fL (80.0-98.0); Mean Platelet Volume 10.2 fL (9.4-12.4); Monocytes Absolute Auto 0.6 X10*3/uL (0.1-1.2); Monocytes Percent Auto 9.6 % (2-11); Neutrophils Absolute Auto 4.1 x10*3/uL (2.0-8.3); Neutrophils Percent Auto 65.2 % (45-73); Platelet Count 264 X10*3/uL (160-400); Red Blood Count 5.17 X10*6/uL (4.60-5.80); Red Cell Distribution Width 14.4 % (11.0-16.0); White Blood Count 6.2 X10*3/uL (4.8-10.8)
[2021-07-28 09:03] LABS: Estimated Average Glucose 160 mg/dL; Hemoglobin A1c % 7.2 %
[2021-07-28 09:38] LABS: Alanine Aminotransferase 37 U/L (0-40); Alkaline Phosphatase 113 U/L (39-117); Anion Gap 12 (12-20); Aspartate Amino Transferase 30 U/L (5-37); Bilirubin Total 0.4 mg/dL (0.0-1.0); Blood Urea Nitrogen 18 mg/dL (9-16); Calcium 9.4 mg/dL (8.4-10.2); Carbon Dioxide 24 mmol/L (22-29); Chloride 108 mmol/L (96-108); Cholesterol 129 mg/dL; Estimated Glomerular Filt Rate > 60; Glucose Fasting 173 mg/dL (60-99); HDL Cholesterol 38 mg/dL; LDL Cholesterol Calculated 80 mg/dl; Potassium 4.6 mmol/L (3.3-5.1); Sodium 139 mmol/L (135-145); Total Protein 7.5 g/dL (6.5-8.0); Triglycerides 55 mg/dL
[2021-07-28 11:15] LABS: Microalbum/Creatinine Ratio Ur 26.7 ug/mg cr
== END 2021-07-28 08:06 | disposition home or self-care (01) ==
LOC: HO.LAB 08:05
PROVIDERS: PCP Internal Medicine; Visit Provider Internal Medicine
DX: Z00.00 Encounter for general adult medical examination without abnormal findings (principal); E11.69 Type 2 diabetes mellitus with other specified complication; E66.01 Morbid (severe) obesity due to excess calories; Z13.0 Encounter for screening for diseases of the blood and blood-forming organs and certain disorders involving the immune mechanism; Z13.220 Encounter for screening for lipoid disorders
CPT/HCPCS: 36415; 80053; 80061; 82043; 83036; 85025

== ENCOUNTER → 2021-08-06 11:00 | Outpatient (BNVA) | payer OTHER, SELFPAY | PROVIDERS: PCP Internal Medicine; Visit Provider Orthopaedic Surgery | DX: Z47.89 Encounter for other orthopedic aftercare (principal); Z98.890 Other specified postprocedural states | CPT/HCPCS: 99212 ==

== ENCOUNTER 2021-08-20 11:00 | Outpatient (RCR) | payer OTHER, SELFPAY ==
--- NOTE | 2021-05-25 16:04 | MHC.PT.EP ---
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 UPON EXAM HE DEMONSTRATES THE EXPECTED IMPAIRMENTS OF DECREASED ROM AND STRENGTH, ALTERED SOFT TISSUE MOBILITY, ALTERED POSTURE AND POSITIONING AND INCREASED PAIN. FUNCTIONAL LIMITATIONS INCLUDE DECREASED ABILITY TO PERFORM HOMEMAKING AND SELF CARE TASKS, DECREASED ABILITY TO PERFORM REACHING, LIFTING, PUSHING, PULLYING AND CARRYING. HE REPORTS DECREASED ABILITY TO PARTICIPATE IN RECREATIONAL AND COMMUNITY ACTIVITIES AND DISRUPTED SLEEP. PT IS A GOOD CANDIDATE FOR SKILLED PT DUE TO AGE, POTENTIAL REMEDIATION OF IMPAIRMENTS, TYPICAL DISEASE/CONDITION PROGRESSION AND PROGNOSIS, COMORBIDITIES, AND MOTIVATION. PT WOULD BENEFIT FROM TAILORED PROGRAM OF THERAPEUTIC ACTIVITIES, FUNCTIONAL TRAINING, GAIT TRAINING, POSTURAL EDUCATION, NEUROMUSCULAR RE-EDUCATION, AND MODALITIES NEEDED. Frequency and Duration: The patient will be seen 2 X WEEK FOR 12 WEEKS Short Term Goals: INCREASE PASSIVE ROM TO FULL BY WEEK 5 INITIATE HEP AND PROMOTE SELF MANAGEMENT OF SYMPTOMS IN 2 WEEKS [facility] Goals: Full, pain free ROM in 8 weeks Full UE strength, pain free in 12 weeks To perform all homemaking tasks without restriction and pain no greater than 2/10 in [address] object at minimum of 5# into cabinet at shoulder height in 12 weeks Treatment Plan: Modalities to reduce pain, spasms and effusion. Manual therapy to restore motion and function. Therapeutic exercise to improve strength and flexibility. Neuromuscular re-education for posture and balance. Therapeutic activities to return to functional activities of daily living. Electronically signed by: Natalie Vitale PT, DPT Please sign and return to therapist. Thank you for your referral.
--- NOTE | 2021-10-07 08:48 | MHC.PT.DC ---
[facility] [place] Office [place] Office [place] Office [address] Constantin Valencia [address] [phone] F: [phone] F: [phone] F: [phone] F: [phone] Physical Therapy Discharge Report Diagnosis: S/P ROTATOR CUFF REPAIR 05/20/21 Date of Surgery: 05/20/21 Date of Evaluation: 05/25/21 Date of Discharge: 10/07/21 Treatments to Date: 19 Cancellations to Date: 6 No Shows to Date: 2 Discharge Status: Improved Function Independent with HEP Discharge Summary: Pt WAS PROGRESSING WELL - HE HAD TO CANCEL LAST FEW APPTS DUE TO OTHER MEDICAL ISSUES. Electronically signed by: Vika FloresPT Please sign and return to therapist. Thank you for your referral.
== END 2021-10-07 08:47 | disposition home or self-care (01) ==
LOC: HO.PT 11:00
PROVIDERS: Visit Provider Physician Assistant
DX: Z98.890 Other specified postprocedural states (principal)
CPT/HCPCS: 97110; 97140; 97161

== ENCOUNTER 2021-11-11 07:38 | Outpatient (REF) | payer OTHER, SELFPAY ==
[2021-11-11 11:05] LABS: Cholesterol 135 mg/dL; Glucose Fasting 144 mg/dL (60-99); HDL Cholesterol 42 mg/dL; LDL Cholesterol Calculated 85 mg/dl; Triglycerides 40 mg/dL
[2021-11-11 11:12] LABS: Estimated Average Glucose 160 mg/dL; Hemoglobin A1c % 7.2 %
== END 2021-11-11 07:39 | disposition home or self-care (01) ==
LOC: HO.10HDL 07:38
PROVIDERS: Visit Provider Internal Medicine
DX: E11.65 Type 2 diabetes mellitus with hyperglycemia (principal); E78.5 Hyperlipidemia, unspecified
CPT/HCPCS: 36415; 80061; 82947; 83036

== ENCOUNTER 2022-08-04 07:39 | Outpatient (REF) | payer OTHER, SELFPAY ==
[2022-08-04 10:34] LABS: MANUAL DIFF FLAG NO
[2022-08-04 10:46] LABS: Basophils Percent Auto 0.4 % (0-2); Eosinophils Absolute Auto 0.2 X10*3/uL (0.0-0.4); Eosinophils Percent Auto 2.1 % (0-4); Hematocrit 45.8 % (42.0-52.0); Hemoglobin 14.7 g/dl (14.0-18.0); Imm Gran Abs Auto 0.03 X10*3/uL (0.00-0.03); Imm Gran Pct Auto 0.4 % (0.0-0.4); Lymphocytes Absolute Auto 1.2 X10*3/uL (1.2-4.9); Lymphocytes Percent Auto 16.2 % (20-40); Mean Corpuscular HGB Conc 32.1 g/dl (31.0-36.0); Mean Corpuscular Hemoglobin 28.9 pg (27.0-33.0); Mean Platelet Volume 10.6 fL (9.4-12.4); Monocytes Absolute Auto 0.6 X10*3/uL (0.1-1.2); Neutrophils Absolute Auto 5.5 x10*3/uL (2.0-8.3); Neutrophils Percent Auto 72.9 % (45-73); Platelet Count 296 X10*3/uL (160-400); Red Blood Count 5.09 X10*6/uL (4.60-5.80); Red Cell Distribution Width 14.6 % (11.0-16.0); White Blood Count 7.5 X10*3/uL (4.8-10.8)
[2022-08-04 10:54] LABS: Estimated Average Glucose 160 mg/dL; Hemoglobin A1c % 7.2 %
[2022-08-04 11:04] LABS: Alanine Aminotransferase 42 U/L (0-40); Albumin Level 3.9 g/dL (3.5-5.0); Alkaline Phosphatase 111 U/L (39-117); Anion Gap 12 (12-20); Aspartate Amino Transferase 38 U/L (5-37); Bilirubin Total 0.7 mg/dL (0.0-1.0); Blood Urea Nitrogen 13 mg/dL (9-16); Calcium 9.5 mg/dL (8.4-10.2); Carbon Dioxide 25 mmol/L (22-29); Chloride 109 mmol/L (96-108); Cholesterol 124 mg/dL; Estimated Glomerular Filt Rate > 60; Glucose Fasting 127 mg/dL (60-99); HDL Cholesterol 39 mg/dL; LDL Cholesterol Calculated 77 mg/dl; Potassium 4.2 mmol/L (3.3-5.1); Sodium 142 mmol/L (135-145); Total Protein 7.2 g/dL (6.5-8.0); Triglycerides 44 mg/dL
== END 2022-08-04 07:40 | disposition home or self-care (01) ==
LOC: HO.10HDL 07:39
PROVIDERS: Visit Provider Internal Medicine
DX: D64.9 Anemia, unspecified (principal); E78.5 Hyperlipidemia, unspecified; N28.9 Disorder of kidney and ureter, unspecified; R73.9 Hyperglycemia, unspecified
CPT/HCPCS: 36415; 80053; 80061; 83036; 85025

== ENCOUNTER 2022-10-04 06:55 | Outpatient (REF) | payer OTHER, SELFPAY ==
[2022-10-04 07:26] LABS: Estimated Average Glucose 163 mg/dL; Hemoglobin A1c % 7.3 %
[2022-10-04 07:50] LABS: Alanine Aminotransferase 37 U/L (0-40); Albumin Level 3.8 g/dL (3.5-5.0); Alkaline Phosphatase 96 U/L (39-117); Anion Gap 13 (12-20); Aspartate Amino Transferase 28 U/L (5-37); Bilirubin Total 0.6 mg/dL (0.0-1.0); Blood Urea Nitrogen 18 mg/dL (9-16); Carbon Dioxide 22 mmol/L (22-29); Chloride 109 mmol/L (96-108); Estimated Glomerular Filt Rate > 60; Glucose Fasting 143 mg/dL (60-99); Potassium 3.8 mmol/L (3.3-5.1); Sodium 140 mmol/L (135-145); Total Protein 7.3 g/dL (6.5-8.0)
== END 2022-10-04 06:56 | disposition home or self-care (01) ==
LOC: HO.LAB 06:55
PROVIDERS: PCP Internal Medicine; Visit Provider Internal Medicine
DX: N28.9 Disorder of kidney and ureter, unspecified (principal); R73.9 Hyperglycemia, unspecified
CPT/HCPCS: 36415; 80053; 83036

== ENCOUNTER 2022-10-20 08:36 | Outpatient (AMB) | payer OTHER, SELFPAY ==
--- NOTE | 2022-10-20 08:44 | MHC.PC.OV ---
Vital Signs 10/20/22 08:45 Height 5 ft 8 in Weight 162 lb 6 oz BMI 24.7 BP 110/70 Blood Pressure Location Lt brachial Position Sitting Pulse 84 Pulse Source Pulse Oximeter Pulse Oximetry (%) 95 Oxygen Delivery Method Room Air Intake Visit Reasons: PE Intake Note: Patient is here today for a physical. Business Performance Specialist Required: Yes Business Performance Specialist Language: Instructor Knitting Name: Luisa Gomez ([id number]) Information Interpreted: non-clinical & clinical Molding Cutter: Not Required per policy Accompanied by: Self / Same As Patient Allergies No Known Allergies [No Known Allergies*] Allergy (Verified 10/20/22 08:45) Medication List - Last Reconciled 10/20/22 by Fredy Watkins MD atorvastatin 40 mg PO DAILY 90 days blood sugar diagnostic (FreeStyle Lite Strips) 1 strip miscellaneous TID 30 days blood-glucose meter (FreeStyle Lite Meter kit) As directed bupropion HCl 1 tab PO BEDTIME cholecalciferol (vitamin D3) 25 mcg PO DAILY 90 days cyclobenzaprine 10 mg PO TID PRN empagliflozin (Jardiance) 25 mg PO DAILY 90 days glucose (Dex4 Glucose) 12 grams (3 x 4 gram) PO Q15M PRN insulin aspart U-100 (Novolog U-100 Insulin aspart) 5-7 units with meals subcut 3 times a day; 30 days insulin glargine (Lantus U-100 Insulin) 15 units (0.15 mL) subcut QPM 30 days insulin syringe-needle U-100 (BD Insulin Syringe Ultra-Fine) 1 each miscellaneous 4 times a day; lancets (FreeStyle Lancets) Three times a day [Medline Remedy with Olivamine Skin Repair Cream As directed] naproxen 500 mg PO BID PRN omeprazole 20 mg PO DAILY oxycodone-acetaminophen 5-325 mg (Percocet) 1 tab PO Q4-6H PRN 7 days pen needle, diabetic (BD Bharati 2nd Gen Pen Needle) 5 times a day sitagliptin phos-metformin 50-1,000 mg ER (Janumet XR) 1 tab PO BID 90 days zolpidem 10 mg PO BEDTIME PRN Tobacco use date assessed: 10/20/22 Fall risk assessment: No Falls in past year Last assessed Fall Risk: 10/20/22 Dental Screening Dental Screen Date: 10/20/22 Did you have a dental visit in the last 12 months?: Yes Did you have a dental problem in the last 6 months where you did not have access to dental care?: No Was dental information given to patient?: No HPI PE HPI Details DM hyperlipidemia and insomnia; sees endo in [place]; doing well; compliant [facility] Medical History (Updated 10/20/22 @ 09:13 by Fredy Watkins MD) Depression Diabetes type 2, uncontrolled Dyslipidemia Hx of renal calculi Hyperlipidemia associated with type 2 diabetes mellitus 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 Overweight (BMI 25.0-29.9) Vitamin D deficiency Surgical History Hx of colonoscopy Hx of lithotripsy Hx of shoulder surgery Family History Mother Diabetes Father Alcoholism Other Substance use disorder Social History Housing: Apartment Alcohol intake: never Patient Tobacco Use Status: Never used Tobacco e-Cigarette/Vaping Use: Never Used Second Hand Smoke Exposure: No service: No Current occupational status: disabled Current occupation: rt handed Cognitive needs: No Hearing needs: No Vision needs: No Questionnaire Thrive Questionnaire Date Thrive assessed: 03/24/22 GALEN-7 AMB Questionnaire GALEN-7 Date GALEN - 7 assessed: 06/22/22 Source: Developed by Drs. Juve Hutton, Huong Shannon, Bryon Reis and colleagues, with an educational murray from [employer]. Review of Systems Const Denies chills, Denies fatigue, Denies headache(s) and Denies weight loss Eyes Denies change in vision, Denies diplopia and Denies eye pain ENT Denies vertigo, Denies dizziness, Denies headache(s) and Denies nasal discharge Card Denies chest pain, Denies rapid heart rate and Denies dyspnea on exertion Resp Denies chest congestion, Denies cough, Denies pain with cough and Denies dyspnea on exertion GI Denies abdominal pain, Denies hematochezia and Denies change in bowel habits Musc Denies myalgias, Denies arthralgias and Denies joint swelling Skin/Breast Denies lesions and Denies unusual bruising Neuro Denies vertigo, Denies dizziness, Denies headache(s) and Denies focal weakness Endo Denies fatigue Physical exam (Primary Care) Vital Signs: Last Vital Signs Pulse 84 10/20/22 08:45 BP 110/70 10/20/22 08:45 Pulse Ox 95 10/20/22 08:45 Oxygen Delivery Method Room Air 10/20/22 08:45 BMI result Body Mass Index 24.7 Tobacco/Smoking Status: Tobacco use Status Tobacco use date assessed 10/20/22 10/20/22 08:54 Patient Tobacco Use Status Never used Tobacco 10/20/22 08:54 e-Cigarette/Vaping Use Never Used 10/20/22 08:54 Thrive Assessment: Date of Thrive Assessment Date Thrive assessed 03/24/22 10/20/22 08:54 Advance Care Planning discussion: On file, no changes Forms completed: Health Care Proxy Const General: cooperative, healthy appearing and no acute distress Orientation/consciousness: oriented to person, oriented to place and oriented to time HENMT Head: Yes normal to inspection, Yes normocephalic and Yes atraumatic Mouth: Normal oral and palatal mucosa present and tongue normal Throat: Yes posterior oropharynx normal and Yes uvula midline Eyes General: appearance normal, both eyes and all related structures Neck Neck: Yes normal visual inspection, Yes full ROM and Yes no lymphadenopathy Thyroid: Thyroid normal Carotids: normal carotid upstroke Chest Chest palpation & inspection: normal inspection of the chest Resp Effort & Inspection: normal respiratory effort and able to speak in complete sentences Auscultation: clear to auscultation bilaterally Cardio Jugular venous distension: no JVD Palpation: normal PMI Rate: regular rate Rhythm: regular rhythm Heart sounds: S1 normal heart sound present and S2 normal heart sound present GI Inspection: Yes normal to inspection Palpation (GI): Soft to palpation and No hepatosplenomegaly present Auscultation: normal bowel sounds General: Yes no CVA tenderness Back/Spine/Pelvis Back: no CVA tenderness Skin General skin exam: no rashes or lesions noted Neuro General: oriented to person, oriented to place and oriented to time Extrem General: Yes normal to inspection and Yes full ROM Assessment and Plan Assessment & Plan (1) Physical exam: Code(s): Z00.00 - Encounter for general adult medical examination without abnormal findings Plan: stable (2) Hyperlipidemia associated with type 2 diabetes mellitus: Code(s): E11.69 - Type 2 diabetes mellitus with other specified complication; E78.5 - Hyperlipidemia, unspecified Plan: stable; same meds (3) Insomnia: Code(s): G47.00 - Insomnia, unspecified Plan: stable; same meds (4) Type 2 diabetes mellitus with hyperlipidemia: Code(s): E11.69 - Type 2 diabetes mellitus with other specified complication; E78.5 - Hyperlipidemia, unspecified Plan: as per endo Orders: Orders Comprehensive Strong. Panel Fast Today N28.9 - Disorder of kidney and ureter, unspecified Hemoglobin A1c Today R73.9 - Hyperglycemia, unspecified Lipid Panel Today E78.5 - Hyperlipidemia, unspecified Prostate Specific Antigen Scr Today Z00.00 - Encounter for general adult medical examination without abnormal findings Thyroid Stimulating Hormone Today E03.9 - Hypothyroidism, unspecified Microalbumin, Random (w Creat) Today E11.69 - Type 2 diabetes mellitus with other specified complication, E66.01 - Morbid (severe) obesity due to excess calories Complete Blood Count Auto Diff Today D64.9 - Anemia, unspecified Medications: Changed From blood sugar diagnostic (FreeStyle Lite Strips) FUTURE REFILLS FROM PCP. 1 strip miscellaneous TID 30 days 100 caps 0RF E11.65 - Type 2 diabetes mellitus with hyperglycemia To blood sugar diagnostic (FreeStyle Lite Strips) FUTURE REFILLS FROM PCP. 1 strip miscellaneous TID 100 caps 8RF 90 days E11.65 - Type 2 diabetes mellitus with hyperglycemia Coding Level of Care Code Est Pt Prev Care 40-64y([id number]) Diagnoses Physical exam Z00.00 Hyperlipidemia associated with type 2 diabetes mellitus E11.69; E78.5 Insomnia G47.00 Type 2 diabetes mellitus with hyperlipidemia E11.69; E78.5 Additional Codes Vital Signs *Quality* - Advance Care Planning discussion: On file, no changes ([id number])
[2022-10-20 08:45] VITALS: BP 110/70; PULSE 84; O2SAT 95; BMI 24.7
== END 2022-10-20 09:22 | disposition home or self-care (01) ==
PROVIDERS: PCP Internal Medicine; Visit Provider Internal Medicine
DX: Z00.00 Encounter for general adult medical examination without abnormal findings (principal); E11.69 Type 2 diabetes mellitus with other specified complication; E78.5 Hyperlipidemia, unspecified; G47.00 Insomnia, unspecified
CPT/HCPCS: 1123F; 99396

== ENCOUNTER 2023-01-19 08:02 | Outpatient (REF) | payer OTHER, SELFPAY ==
[2023-01-19 10:17] LABS: MANUAL DIFF FLAG NO
[2023-01-19 10:25] LABS: Basophils Absolute Auto 0.1 X10*3/uL (0.0-0.2); Basophils Percent Auto 0.7 % (0-2); Eosinophils Absolute Auto 0.2 X10*3/uL (0.0-0.4); Eosinophils Percent Auto 2.2 % (0-4); Hematocrit 48.5 % (42.0-52.0); Hemoglobin 15.5 g/dl (14.0-18.0); Imm Gran Abs Auto 0.03 X10*3/uL (0.00-0.03); Imm Gran Pct Auto 0.4 % (0.0-0.4); Lymphocytes Absolute Auto 1.4 X10*3/uL (1.2-4.9); Lymphocytes Percent Auto 19.2 % (20-40); Mean Corpuscular Hemoglobin 29.3 pg (27.0-33.0); Mean Corpuscular Volume 91.7 fL (80.0-98.0); Mean Platelet Volume 10.2 fL (9.4-12.4); Monocytes Absolute Auto 0.6 X10*3/uL (0.1-1.2); Monocytes Percent Auto 8.6 % (2-11); Neutrophils Percent Auto 68.9 % (45-73); Platelet Count 279 X10*3/uL (160-400); Red Blood Count 5.29 X10*6/uL (4.60-5.80); Red Cell Distribution Width 14.6 % (11.0-16.0); White Blood Count 7.2 X10*3/uL (4.8-10.8)
[2023-01-19 10:46] LABS: Estimated Average Glucose 157 mg/dL; Hemoglobin A1c % 7.1 % (<6.0)
[2023-01-19 10:53] LABS: Alanine Aminotransferase 29 U/L (0-40); Alkaline Phosphatase 99 U/L (39-117); Anion Gap 10 (12-20); Aspartate Amino Transferase 27 U/L (5-37); Bilirubin Total 0.5 mg/dL (0.0-1.0); Blood Urea Nitrogen 19 mg/dL (9-16); Calcium 9.8 mg/dL (8.4-10.2); Carbon Dioxide 24 mmol/L (22-29); Chloride 109 mmol/L (96-108); Cholesterol 146 mg/dL (<200); Estimated Glomerular Filt Rate > 60; Glucose Fasting 164 mg/dL (60-99); HDL Cholesterol 40 mg/dL (>40); LDL Cholesterol Calculated 99 mg/dL (<100); Potassium 4.2 mmol/L (3.3-5.1); Sodium 139 mmol/L (135-145); Total Protein 7.7 g/dL (6.5-8.0); Triglycerides 38 mg/dL (<150)
[2023-01-19 11:06] LABS: Prostate Specific Antigen Scr 0.14 ng/mL (<0.05-4.0)
[2023-01-19 11:08] LABS: Creatinine Urine 62.77 mg/dL; Microalbum/Creatinine Ratio Ur 36.6 ug/mg cr (<30)
[2023-01-19 11:10] LABS: Thyroid Stimulating Hormone 0.87 uIU/mL (0.32-4.0)
== END 2023-01-19 08:03 | disposition home or self-care (01) ==
LOC: HO.10HDL 08:02
PROVIDERS: Visit Provider Internal Medicine
DX: Z00.00 Encounter for general adult medical examination without abnormal findings (principal); D64.9 Anemia, unspecified; N28.9 Disorder of kidney and ureter, unspecified; E78.5 Hyperlipidemia, unspecified; E11.69 Type 2 diabetes mellitus with other specified complication; E66.01 Morbid (severe) obesity due to excess calories; E11.65 Type 2 diabetes mellitus with hyperglycemia; E03.9 Hypothyroidism, unspecified; Z12.5 Encounter for screening for malignant neoplasm of prostate
CPT/HCPCS: 36415; 80053; 80061; 82043; 82570; 83036; 84153; 84443; 85025

== ENCOUNTER 2023-01-26 07:36 | Outpatient (AMB) | payer OTHER, SELFPAY ==
[2023-01-26 08:31] VITALS: BP 140/70; PULSE 60; O2SAT 97; BMI 24.5
--- NOTE | 2023-01-26 08:31 | MHC.PC.OV ---
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 policy Accompanied by: Self / Same As Patient Allergies No Known Allergies [No Known Allergies*] Allergy (Verified 01/26/23 08:31) Medication List - Last Reconciled 01/26/23 by Fredy Watkins MD atorvastatin 40 mg PO DAILY 90 days blood sugar diagnostic (FreeStyle Lite Strips) 1 strip miscellaneous TID 90 days blood-glucose meter (FreeStyle Lite Meter kit) As directed bupropion HCl 1 tab PO BEDTIME cholecalciferol (vitamin D3) 25 mcg PO DAILY 90 days cyclobenzaprine 10 mg PO TID PRN empagliflozin (Jardiance) 25 mg PO DAILY 90 days glucose (Dex4 Glucose) 12 grams (3 x 4 gram) PO Q15M PRN insulin aspart U-100 (Novolog U-100 Insulin aspart) 5-7 units with meals subcut 3 times a day; 30 days insulin glargine (Lantus U-100 Insulin) 15 units (0.15 mL) subcut QPM 30 days insulin syringe-needle U-100 (BD Insulin Syringe Ultra-Fine) 1 each miscellaneous 4 times a day; lancets (FreeStyle Lancets) Three times a day [Medline Remedy with Olivamine Skin Repair Cream As directed] naproxen 500 mg PO BID PRN omeprazole 20 mg PO DAILY oxycodone-acetaminophen 5-325 mg (Percocet) 1 tab PO Q4-6H PRN 7 days pen needle, diabetic (BD Bharati 2nd Gen Pen Needle) 5 times a day sitagliptin phos-metformin 50-1,000 mg ER (Janumet XR) 1 tab PO BID 90 days zolpidem 10 mg PO BEDTIME PRN Tobacco use date assessed: 10/20/22 Fall risk assessment: No Falls in past year Last assessed Fall Risk: 01/26/23 Dental Screening Dental Screen Date: 01/26/23 Did you have a dental visit in the last 12 months?: Yes Did you have a dental problem in the last 6 months where you did not have access to dental care?: No Was dental information given to patient?: Patient has dentist HPI 3 month f/u HPI Details diabetes hyperlipidemia and gerd on rx; doing well; compliant [facility] Medical History Hyperlipidemia associated with type 2 diabetes mellitus Hx of renal calculi Depression Vitamin D deficiency Overweight (BMI 25.0-29.9) care home (current) use of insulin Dyslipidemia Diabetes type 2, uncontrolled Surgical History Hx of shoulder surgery Hx of colonoscopy Hx of lithotripsy Family History Mother Diabetes Father Alcoholism Other Substance use disorder Social History Housing: Apartment Alcohol intake: never Patient Tobacco Use Status: Never used Tobacco e-Cigarette/Vaping Use: Never Used Second Hand Smoke Exposure: No service: No Current occupational status: disabled Current occupation: rt handed Cognitive needs: No Hearing needs: No Vision needs: No Questionnaire PHQ-9 Over the last 2 weeks, how often have you been bothered by any of the following problems? 1. Little interest or pleasure in doing things: not at all 2. Feeling down, depressed, or hopeless: not at all 3. Trouble falling or staying asleep, or sleeping too much: not at all 4. Feeling tired or having little energy: not at all 5. Poor appetite or overeating: not at all 6. Feeling bad about yourself - or that you are a failure or have let yourself or your family down: not at all 7. Trouble concentrating on things, such as reading the newspaper or watching television: not at all 8. Moving or speaking so slowly that other people could have noticed. Or the opposite - being so fidgety or restless that you have been moving around a lot more than usual: not at all 9. Thoughts that you would be better off or of hurting yourself in some way: not at all Total score: 0 Depression Screening Interpretation: Negative Depression Screening Done: Yes 95806 - PHQ-9 Billing: Yes Source: Developed by Drs. Juve Hutton, Bryon Alvarado and colleagues, with an educational murray from [employer]. Thrive Questionnaire Date Thrive assessed: 03/24/22 AUDIT C Alcohol Use Questionnaire (AUDIT-C) 1. How often do you have a drink containing alcohol?: Never Total Score: 0 Score Reviewed/Action Taken: Yes GALEN-7 AMB Questionnaire GALEN-7 Date GALEN - 7 assessed: 06/22/22 Source: Developed by Drs. Juve Hutton, Bryon Alvarado and colleagues, with an educational murray from [employer]. Review of Systems Const Denies chills, Denies headache(s) and Denies weight loss ENT Denies headache(s) Card Denies chest pain, Denies syncope, Denies irregular heart rhythm and Denies dyspnea Resp Denies chest congestion, Denies cough and Denies dyspnea GI Denies abdominal pain, Denies change in stool character, Denies nausea and Denies vomiting Musc Denies deformity and Denies joint swelling Neuro Denies syncope and Denies headache(s) Physical exam (Primary Care) Vital Signs: Last Vital Signs Pulse 60 01/26/23 08:31 BP 140/70 H 01/26/23 08:31 Pulse Ox 97 01/26/23 08:31 Oxygen Delivery Method Room Air 01/26/23 08:31 BMI result Body Mass Index 24.5 Tobacco/Smoking Status: Tobacco use Status Tobacco use date assessed 10/20/22 01/26/23 08:36 Patient Tobacco Use Status Never used Tobacco 01/26/23 08:36 e-Cigarette/Vaping Use Never Used 01/26/23 08:36 PHQ-9: PHQ-9 Score PHQ-9: Total score 0 01/26/23 08:36 Depression Screening Interpretation: Negative Thrive Assessment: Date of Thrive Assessment Date Thrive assessed 03/24/22 01/26/23 08:36 Const General: cooperative, comfortable, no acute distress and alert Neck Neck: Yes no lymphadenopathy Thyroid: Thyroid normal Resp Effort & Inspection: normal respiratory effort Auscultation: clear to auscultation bilaterally Percussion: percussion normal Cardio Jugular venous distension: no JVD Palpation: normal PMI Rate: regular rate Rhythm: regular rhythm Heart sounds: S1 normal heart sound present and S2 normal heart sound present GI Inspection: Yes normal to inspection Palpation (GI): No hepatosplenomegaly present Skin General skin exam: no rashes or lesions noted Extrem General: Yes no clubbing, cyanosis or edema Assessment and Plan Assessment & Plan (1) Type 2 diabetes mellitus with hyperlipidemia: Code(s): E11.69 - Type 2 diabetes mellitus with other specified complication; E78.5 - Hyperlipidemia, unspecified Plan: stable; same rx (2) Chronic GERD: Code(s): K21.9 - Gastro-esophageal reflux disease without esophagitis Plan: stable; same rx (3) Dyslipidemia: Code(s): E78.5 - Hyperlipidemia, unspecified Plan: stable; same rx Orders: Orders Lipid Panel Today E78.5 - Hyperlipidemia, unspecified Glucose Fasting Today R73.9 - Hyperglycemia, unspecified Hemoglobin A1c Today R73.9 - Hyperglycemia, unspecified Coding Level of Care Code Est Pt Level 4 (56799) Diagnoses Type 2 diabetes mellitus with hyperlipidemia E11.69; E78.5 Chronic GERD K21.9 Dyslipidemia E78.5
== END 2023-01-26 08:44 | disposition home or self-care (01) ==
PROVIDERS: PCP Internal Medicine; Visit Provider Internal Medicine
DX: E11.69 Type 2 diabetes mellitus with other specified complication (principal); E78.5 Hyperlipidemia, unspecified; K21.9 Gastro-esophageal reflux disease without esophagitis
CPT/HCPCS: 99214

== ENCOUNTER 2023-04-29 08:40 | Outpatient (AMB) | payer OTHER, SELFPAY ==
[2023-04-29 08:42] VITALS: BP 130/72; PULSE 77; O2SAT 95; BMI 25.2
--- NOTE | 2023-04-29 08:42 | MHC.PC.OV ---
Vital Signs 04/29/23 08:42 Height 5 ft 8 in Weight 166 lb BMI 25.2 BP 130/72 Blood Pressure Location Lt brachial Position Sitting Pulse 77 Pulse Source Pulse Oximeter Pulse Oximetry (%) 95 Oxygen Delivery Method Room Air Intake Visit Reasons: 3mth f/u Intake Note: Patient is here to follow up on 3 months Scale Installer Required: Yes Scale Installer Language: Greenlandic Allergies No Known Allergies [No Known Allergies*] Allergy (Verified 04/29/23 08:43) Medication List - Last Reconciled 04/29/23 by Fredy Watkins MD atorvastatin 40 mg PO DAILY 90 days blood sugar diagnostic (FreeStyle Lite Strips) 1 strip miscellaneous TID 90 days blood-glucose meter (FreeStyle Lite Meter kit) As directed bupropion HCl 1 tab PO BEDTIME cholecalciferol (vitamin D3) 25 mcg PO DAILY 90 days cyclobenzaprine 10 mg PO TID PRN empagliflozin (Jardiance) 25 mg PO DAILY 90 days glucose (Dex4 Glucose) 12 grams (3 x 4 gram) PO Q15M PRN insulin aspart U-100 (Novolog U-100 Insulin aspart) 5-7 units with meals subcut 3 times a day; 30 days insulin glargine (Lantus U-100 Insulin) 15 units (0.15 mL) subcut QPM 30 days insulin syringe-needle U-100 (BD Insulin Syringe Ultra-Fine) 1 each miscellaneous 4 times a day; lancets (FreeStyle Lancets) Three times a day [Medline Remedy with Olivamine Skin Repair Cream As directed] naproxen 500 mg PO BID PRN omeprazole 20 mg PO DAILY oxycodone-acetaminophen 5-325 mg (Percocet) 1 tab PO Q4-6H PRN 7 days pen needle, diabetic (BD Bharati 2nd Gen Pen Needle) 5 times a day sitagliptin phos-metformin 50-1,000 mg ER (Janumet XR) 1 tab PO BID 90 days zolpidem 10 mg PO BEDTIME PRN Tobacco use date assessed: 04/29/23 Fall risk assessment: No Falls in past year Last assessed Fall Risk: 04/29/23 Dental Screening Dental Screen Date: 04/29/23 HPI 3mth f/u HPI Details DM hyperlipidemia and insomnia on Rx; doing well; has dysphagia for solids PFSH Medical History Hyperlipidemia associated with type 2 diabetes mellitus Hx of renal calculi Depression Vitamin D deficiency Overweight (BMI 25.0-29.9) longterm (current) use of insulin Dyslipidemia Diabetes type 2, uncontrolled Surgical History Hx of shoulder surgery Hx of colonoscopy Hx of lithotripsy Family History Mother Diabetes Father Alcoholism Other Substance use disorder Social History Housing: Apartment Alcohol intake: never Patient Tobacco Use Status: Never used Tobacco e-Cigarette/Vaping Use: Never Used Second Hand Smoke Exposure: No service: No Current occupational status: disabled Current occupation: rt handed Cognitive needs: No Hearing needs: No Vision needs: No Questionnaire PHQ-9 Over the last 2 weeks, how often have you been bothered by any of the following problems? 1. Little interest or pleasure in doing things: not at all 2. Feeling down, depressed, or hopeless: not at all 3. Trouble falling or staying asleep, or sleeping too much: not at all 4. Feeling tired or having little energy: not at all 5. Poor appetite or overeating: not at all 6. Feeling bad about yourself - or that you are a failure or have let yourself or your family down: not at all 7. Trouble concentrating on things, such as reading the newspaper or watching television: not at all 8. Moving or speaking so slowly that other people could have noticed. Or the opposite - being so fidgety or restless that you have been moving around a lot more than usual: not at all 9. Thoughts that you would be better off or of hurting yourself in some way: not at all Total score: 0 Depression Screening Interpretation: Negative Depression Screening Done: Yes 58725 - PHQ-9 Billing: Yes Source: Developed by Drs. Juve Hutton, Huong Shannon, Bryon Reis and colleagues, with an educational murray from [employer]. Thrive Questionnaire Date Thrive assessed: 04/29/23 I am a: Patient What is your living situation today?: I have a steady place to live Within the past 12 months, did the food you bought not last and you didn't have the money to get more?: Never true Within the past 12 months, did you worry whether your food would run out before you got money to buy more?: Never true Do you have trouble paying for medicines?: No Do you have trouble getting transportation to medical appointments?: No Do you have trouble paying your heating and electricity bill?: No Do you have trouble taking care of your child, family member or friend?: No Do you have trouble with day-to-day activities such as bathing, preparing meals, shopping, managing finances, etc.?: No Are you currently unemployed and looking for a job?: No Are you interested in more education?: No Please select the resources that you would like help with: None THRIVE Score: 0 AUDIT C Alcohol Use Questionnaire (AUDIT-C) 1. How often do you have a drink containing alcohol?: Never Total Score: 0 Score Reviewed/Action Taken: Yes GALEN-7 AMB Questionnaire GALEN-7 Date GALEN - 7 assessed: 04/29/23 Source: Developed by Drs. Juve Hutton, Huong Shannon, Bryon Reis and colleagues, with an educational murray from [employer]. Review of Systems Const Denies chills, Denies headache(s) and Denies weight loss ENT Denies headache(s) Card Denies chest pain, Denies syncope, Denies irregular heart rhythm and Denies dyspnea Resp Denies chest congestion, Denies cough and Denies dyspnea GI Denies abdominal pain, Denies change in stool character, Denies nausea and Denies vomiting Musc Denies deformity and Denies joint swelling Neuro Denies syncope and Denies headache(s) Physical exam (Primary Care) Vital Signs: Last Vital Signs Pulse 77 04/29/23 08:42 BP 130/72 04/29/23 08:42 Pulse Ox 95 04/29/23 08:42 Oxygen Delivery Method Room Air 04/29/23 08:42 BMI result Body Mass Index 25.2 Tobacco/Smoking Status: Tobacco use Status Tobacco use date assessed 04/29/23 04/29/23 08:43 Patient Tobacco Use Status Never used Tobacco 04/29/23 08:43 e-Cigarette/Vaping Use Never Used 04/29/23 08:43 PHQ-9: PHQ-9 Score PHQ-9: Total score 0 04/29/23 08:58 Depression Screening Interpretation: Negative Thrive Assessment: Date of Thrive Assessment Date Thrive assessed 04/29/23 04/29/23 08:43 Const General: cooperative, comfortable, no acute distress and alert Neck Neck: Yes no lymphadenopathy Thyroid: Thyroid normal Resp Effort & Inspection: normal respiratory effort Auscultation: clear to auscultation bilaterally Percussion: percussion normal Cardio Jugular venous distension: no JVD Palpation: normal PMI Rate: regular rate Rhythm: regular rhythm Heart sounds: S1 normal heart sound present and S2 normal heart sound present GI Inspection: Yes normal to inspection Palpation (GI): No hepatosplenomegaly present Skin General skin exam: no rashes or lesions noted Extrem General: Yes no clubbing, cyanosis or edema Results AMB Hemoglobin A1c AMB Hemoglobin A1c 8.2 % Last Edit by LOLA Cavazos on 04/29/23 08:58 Results Reviewed Results Reviewed: Laboratory Last Values Hgb A1c (Clinic) 8.2 % (4.0-6.0) H 04/29/23 08:44 Assessment and Plan Assessment & Plan (1) Type 2 diabetes mellitus with hyperlipidemia: Code(s): E11.69 - Type 2 diabetes mellitus with other specified complication; E78.5 - Hyperlipidemia, unspecified Plan: stable; same rx (2) Insomnia: Code(s): G47.00 - Insomnia, unspecified Plan: stable; same rx (3) Chronic GERD: Code(s): K21.9 - Gastro-esophageal reflux disease without esophagitis Plan: stable; with dysphagia ref to gi Orders: Orders Lipid Panel Today E78.5 - Hyperlipidemia, unspecified AMB Hemoglobin A1c Today E11.65 - Type 2 diabetes mellitus with hyperglycemia Complete Blood Count Auto Diff Today D64.9 - Anemia, unspecified Comprehensive [place]. Panel Fast Today N28.9 - Disorder of kidney and ureter, unspecified Hemoglobin A1c Today R73.9 - Hyperglycemia, unspecified Microalbumin, Random (w Creat) Today E11.69 - Type 2 diabetes mellitus with other specified complication, E66.01 - Morbid (severe) obesity due to excess calories Referrals Gastroenterology Referral R13.10 - Dysphagia, unspecified Coding Level of Care Code Est Pt Level 4 (48644) Diagnoses Type 2 diabetes mellitus with hyperlipidemia E11.69; E78.5 Insomnia G47.00 Chronic GERD K21.9
== END 2023-04-29 08:58 | disposition home or self-care (01) ==
PROVIDERS: PCP Internal Medicine; Visit Provider Internal Medicine
DX: E11.69 Type 2 diabetes mellitus with other specified complication (principal); E78.5 Hyperlipidemia, unspecified; G47.00 Insomnia, unspecified; K21.9 Gastro-esophageal reflux disease without esophagitis; E11.65 Type 2 diabetes mellitus with hyperglycemia
CPT/HCPCS: 83036; 99214

== ENCOUNTER 2023-07-29 07:58 | Outpatient (AMB) | payer OTHER, SELFPAY ==
--- NOTE | 2023-07-29 08:36 | MHC.PC.OV ---
Vital Signs 07/29/23 08:37 Height 5 ft 8 in Weight 166 lb BMI 25.2 BP 120/62 Blood Pressure Location Lt brachial Position Sitting Pulse 60 Pulse Source Pulse Oximeter Pulse Oximetry (%) 96 Oxygen Delivery Method Room Air Intake Visit Reasons: 3mth f/u [place] Machine Operator Required: Yes Information Interpreted: non-clinical & clinical Street Sweeper: Not Required per policy Accompanied by: Self / Same As Patient Allergies No Known Allergies [No Known Allergies*] Allergy (Verified 07/29/23 08:37) Medication List - Last Reconciled 07/29/23 by Fredy Watkins MD atorvastatin 40 mg PO DAILY 90 days blood sugar diagnostic (FreeStyle Lite Strips) 1 strip miscellaneous TID 90 days blood-glucose meter (FreeStyle Lite Meter kit) As directed bupropion HCl XL 1 tab PO BEDTIME cholecalciferol (vitamin D3) 25 mcg PO DAILY 90 days cyclobenzaprine 10 mg PO TID PRN empagliflozin (Jardiance) 25 mg PO DAILY 90 days glucose (Dex4 Glucose) 12 grams (3 x 4 gram) PO Q15M PRN insulin aspart U-100 (Novolog U-100 Insulin aspart) 5-7 units with meals subcut 3 times a day; 30 days insulin glargine (Lantus U-100 Insulin) 15 units (0.15 mL) subcut QPM 30 days insulin syringe-needle U-100 (BD Insulin Syringe Ultra-Fine) 1 each miscellaneous 4 times a day; lancets (FreeStyle Lancets) Three times a day [Medline Remedy with Olivamine Skin Repair Cream As directed] naproxen 500 mg PO BID PRN omeprazole 20 mg PO DAILY oxycodone-acetaminophen 5-325 mg (Percocet) 1 tab PO Q4-6H PRN 7 days pen needle, diabetic (BD Bharati 2nd Gen Pen Needle) 5 times a day sitagliptin phos-metformin 50-1,000 mg ER (Janumet XR) 1 tab PO BID 90 days zolpidem 10 mg PO BEDTIME PRN Tobacco use date assessed: 04/29/23 Fall risk assessment: No Falls in past year Last assessed Fall Risk: 07/29/23 Dental Screening Dental Screen Date: 04/29/23 HPI 3mth f/u HPI Details DM hyperlipidemia and insomnia on rx; compliant with meds [facility] Medical History Hyperlipidemia associated with type 2 diabetes mellitus Hx of renal calculi Depression Vitamin D deficiency Overweight (BMI 25.0-29.9) skilled nursing (current) use of insulin Dyslipidemia Diabetes type 2, uncontrolled Surgical History Hx of shoulder surgery Hx of colonoscopy Hx of lithotripsy Family History Mother Diabetes Father Alcoholism Other Substance use disorder Social History Housing: Apartment Alcohol intake: never Patient Tobacco Use Status: Never used Tobacco e-Cigarette/Vaping Use: Never Used Second Hand Smoke Exposure: No service: No Current occupational status: disabled Current occupation: rt handed Cognitive needs: No Hearing needs: No Vision needs: No Questionnaire Thrive Questionnaire Date Thrive assessed: 04/29/23 GALEN-7 AMB Questionnaire GALEN-7 Date GALEN - 7 assessed: 04/29/23 Source: Developed by Drs. Juve Hutton, Huong Shannon, Bryon Reis and colleagues, with an educational murray from [employer]. Review of Systems Const Denies chills, Denies headache(s) and Denies weight loss ENT Denies headache(s) Card Denies chest pain, Denies syncope, Denies irregular heart rhythm and Denies dyspnea Resp Denies chest congestion, Denies cough and Denies dyspnea GI Denies abdominal pain, Denies change in stool character, Denies nausea and Denies vomiting Musc Denies deformity and Denies joint swelling Neuro Denies syncope and Denies headache(s) Physical exam (Primary Care) Vital Signs: Last Vital Signs Pulse 60 07/29/23 08:37 BP 120/62 07/29/23 08:37 Pulse Ox 96 07/29/23 08:37 Oxygen Delivery Method Room Air 07/29/23 08:37 BMI result Body Mass Index 25.2 Tobacco/Smoking Status: Tobacco use Status Tobacco use date assessed 04/29/23 07/29/23 08:37 Patient Tobacco Use Status Never used Tobacco 07/29/23 08:37 e-Cigarette/Vaping Use Never Used 07/29/23 08:37 Thrive Assessment: Date of Thrive Assessment Date Thrive assessed 04/29/23 07/29/23 08:37 Const General: cooperative, comfortable, no acute distress and alert Neck Neck: Yes no lymphadenopathy Thyroid: Thyroid normal Resp Effort & Inspection: normal respiratory effort Auscultation: clear to auscultation bilaterally Percussion: percussion normal Cardio Jugular venous distension: no JVD Palpation: normal PMI Rate: regular rate Rhythm: regular rhythm Heart sounds: S1 normal heart sound present and S2 normal heart sound present GI Inspection: Yes normal to inspection Palpation (GI): No hepatosplenomegaly present Skin General skin exam: no rashes or lesions noted Extrem General: Yes no clubbing, cyanosis or edema Results AMB Hemoglobin A1c AMB Hemoglobin A1c 7.9 % Last Edit by LOLA Lamb on 07/29/23 08:49 Results Reviewed Results Reviewed: Laboratory Last Values Hgb A1c (Clinic) 7.9 % (4.0-6.0) H 07/29/23 08:38 Assessment and Plan Assessment & Plan (1) Type 2 diabetes mellitus with hyperlipidemia: Code(s): E11.69 - Type 2 diabetes mellitus with other specified complication; E78.5 - Hyperlipidemia, unspecified Plan: due for labs (2) Hyperlipidemia associated with type 2 diabetes mellitus: Code(s): E11.69 - Type 2 diabetes mellitus with other specified complication; E78.5 - Hyperlipidemia, unspecified Plan: due for labs (3) Insomnia: Code(s): G47.00 - Insomnia, unspecified Plan: stable; same rx Orders: Orders AMB Hemoglobin A1c Today E11.69 - Type 2 diabetes mellitus with other specified complication, E78.5 - Hyperlipidemia, unspecified Coding Level of Care Code Est Pt Level 4 (46860) Diagnoses Type 2 diabetes mellitus with hyperlipidemia E11.69; E78.5 Hyperlipidemia associated with type 2 diabetes mellitus E11.69; E78.5 Insomnia G47.00
[2023-07-29 08:37] VITALS: BP 120/62; PULSE 60; O2SAT 96; BMI 25.2
== END 2023-07-29 08:53 | disposition home or self-care (01) ==
PROVIDERS: PCP Internal Medicine; Visit Provider Internal Medicine
DX: E11.69 Type 2 diabetes mellitus with other specified complication (principal); E78.5 Hyperlipidemia, unspecified; G47.00 Insomnia, unspecified
CPT/HCPCS: 83036; 99214

== ENCOUNTER 2023-07-29 09:15 | Outpatient (REF) | payer OTHER, SELFPAY ==
[2023-07-29 10:53] LABS: MANUAL DIFF FLAG NO
[2023-07-29 11:07] LABS: Basophils Absolute Auto 0.1 X10*3/uL (0.0-0.2); Eosinophils Absolute Auto 0.1 X10*3/uL (0.0-0.4); Eosinophils Percent Auto 2.3 % (0-4); Hematocrit 48.6 % (42.0-52.0); Hemoglobin 15.7 g/dl (14.0-18.0); Imm Gran Abs Auto 0.02 X10*3/uL (0.00-0.03); Imm Gran Pct Auto 0.3 % (0.0-0.4); Lymphocytes Absolute Auto 1.7 X10*3/uL (1.2-4.9); Lymphocytes Percent Auto 28.6 % (20-40); Mean Corpuscular HGB Conc 32.3 g/dl (31.0-36.0); Mean Corpuscular Hemoglobin 29.7 pg (27.0-33.0); Mean Corpuscular Volume 91.9 fL (80.0-98.0); Mean Platelet Volume 9.8 fL (9.4-12.4); Monocytes Absolute Auto 0.6 X10*3/uL (0.1-1.2); Monocytes Percent Auto 10.7 % (2-11); Neutrophils Absolute Auto 3.4 x10*3/uL (2.0-8.3); Neutrophils Percent Auto 57.1 % (45-73); Platelet Count 283 X10*3/uL (160-400); Red Blood Count 5.29 X10*6/uL (4.60-5.80); Red Cell Distribution Width 14.1 % (11.0-16.0)
[2023-07-29 11:24] LABS: Estimated Average Glucose 169 mg/dL; Hemoglobin A1c % 7.5 % (<6.0)
[2023-07-29 11:52] LABS: Creatinine Urine 80.63 mg/dL
[2023-07-29 12:05] LABS: Alanine Aminotransferase 41 U/L (0-40); Albumin Level 4.1 g/dL (3.5-5.0); Alkaline Phosphatase 96 U/L (39-117); Anion Gap 12 (12-20); Aspartate Amino Transferase 31 U/L (5-37); Bilirubin Total 0.3 mg/dL (0.0-1.0); Blood Urea Nitrogen 12 mg/dL (9-16); Calcium 9.4 mg/dL (8.4-10.2); Carbon Dioxide 26 mmol/L (22-29); Chloride 105 mmol/L (96-108); Cholesterol 156 mg/dL (<200); Estimated Glomerular Filt Rate > 60; Glucose Fasting 127 mg/dL (60-99); HDL Cholesterol 37 mg/dL (>40); LDL Cholesterol Calculated 104 mg/dL (<100); Potassium 4.1 mmol/L (3.3-5.1); Sodium 139 mmol/L (135-145); Triglycerides 78 mg/dL (<150)
== END 2023-07-29 09:16 | disposition home or self-care (01) ==
LOC: HO.10HDL 09:15
PROVIDERS: Visit Provider Internal Medicine
DX: E78.5 Hyperlipidemia, unspecified (principal); D64.9 Anemia, unspecified; E11.69 Type 2 diabetes mellitus with other specified complication; E66.01 Morbid (severe) obesity due to excess calories; N28.9 Disorder of kidney and ureter, unspecified; R73.9 Hyperglycemia, unspecified
CPT/HCPCS: 36415; 80053; 80061; 82043; 82570; 83036; 85025

== ENCOUNTER 2023-11-02 07:52 | Outpatient (AMB) | payer OTHER, SELFPAY ==
[2023-11-02 08:33] VITALS: BP 128/78; PULSE 62; O2SAT 93; BMI 24.8
--- NOTE | 2023-11-02 08:33 | MHC.PC.OV ---
Vital Signs 11/02/23 08:33 Height 5 ft 8 in Weight 163 lb BMI 24.8 BP 128/78 Blood Pressure Location Lt brachial Position Sitting Pulse 62 Pulse Source Pulse Oximeter Pulse Oximetry (%) 93 Oxygen Delivery Method Room Air Intake Visit Reasons: 3mth f/u Chemistry Specialist Required: Yes Chemistry Specialist Name: Dedrick [id number] Allergies No Known Allergies [No Known Allergies*] Allergy (Verified 11/02/23 08:43) Medication List - Last Reconciled 11/02/23 by Fredy Watkins MD atorvastatin 40 mg PO DAILY 90 days [bed rails As directed] blood sugar diagnostic (FreeStyle Lite Strips) 1 strip miscellaneous TID 90 days blood-glucose meter (FreeStyle Lite Meter kit) As directed bupropion HCl XL 1 tab PO BEDTIME cane As directed cholecalciferol (vitamin D3) 25 mcg PO DAILY 90 days cyclobenzaprine 10 mg PO TID PRN empagliflozin (Jardiance) 25 mg PO DAILY 90 days glucose (Dex4 Glucose) 12 grams (3 x 4 gram) PO Q15M PRN insulin aspart U-100 (Novolog U-100 Insulin aspart) 5-7 units with meals subcut 3 times a day; 30 days insulin glargine (Lantus U-100 Insulin) 15 units (0.15 mL) subcut QPM 30 days insulin syringe-needle U-100 (BD Insulin Syringe Ultra-Fine) 1 each miscellaneous 4 times a day; lancets (FreeStyle Lancets) Three times a day [Medline Remedy with Olivamine Skin Repair Cream As directed] naproxen 500 mg PO BID PRN omeprazole 20 mg PO DAILY oxycodone-acetaminophen 5-325 mg (Percocet) 1 tab PO Q4-6H PRN 7 days pen needle, diabetic (BD Bharati 2nd Gen Pen Needle) 5 times a day [shower chair As directed] sitagliptin phos-metformin 50-1,000 mg ER (Janumet XR) 1 tab PO BID 90 days [walker As directed] zolpidem 10 mg PO BEDTIME PRN Tobacco use date assessed: 04/29/23 Fall risk assessment: No Falls in past year Last assessed Fall Risk: 11/02/23 Dental Screening Dental Screen Date: 04/29/23 HPI 3mth f/u HPI Details diabetes hyperlipidemia and depression on rx; doing well; compliant ; due for labs [facility] Medical History Hyperlipidemia associated with type 2 diabetes mellitus Hx of renal calculi Depression Vitamin D deficiency Overweight (BMI 25.0-29.9) [facility] (current) use of insulin Dyslipidemia Diabetes type 2, uncontrolled Surgical History Hx of shoulder surgery Hx of colonoscopy Hx of lithotripsy Family History Mother Diabetes Father Alcoholism Other Substance use disorder Social History Housing: Apartment Alcohol intake: never Patient Tobacco Use Status: Never used Tobacco Tobacco use type: Cigarette e-Cigarette/Vaping Use: Never Used Second Hand Smoke Exposure: No service: No Current occupational status: disabled Current occupation: rt handed Cognitive needs: No Hearing needs: No Vision needs: No Questionnaire PHQ-9 Over the last 2 weeks, how often have you been bothered by any of the following problems? 1. Little interest or pleasure in doing things: not at all 2. Feeling down, depressed, or hopeless: not at all 3. Trouble falling or staying asleep, or sleeping too much: not at all 4. Feeling tired or having little energy: not at all 5. Poor appetite or overeating: not at all 6. Feeling bad about yourself - or that you are a failure or have let yourself or your family down: not at all 7. Trouble concentrating on things, such as reading the newspaper or watching television: not at all 8. Moving or speaking so slowly that other people could have noticed. Or the opposite - being so fidgety or restless that you have been moving around a lot more than usual: not at all 9. Thoughts that you would be better off or of hurting yourself in some way: not at all Total score: 0 Depression Screening Interpretation: Negative Depression Screening Done: Yes 50198 - PHQ-9 Billing: Yes Source: Developed by Drs. Juve Hutton, Huong Shannon, Bryon Reis and colleagues, with an educational murray from [employer]. Thrive Questionnaire Date Thrive assessed: 04/29/23 AUDIT C Alcohol Use Questionnaire (AUDIT-C) 1. How often do you have a drink containing alcohol?: Never Total Score: 0 Score Reviewed/Action Taken: Yes GALEN-7 AMB Questionnaire GALEN-7 Date GALEN - 7 assessed: 04/29/23 Source: Developed by Drs. Juve Hutton, Huong Shannon, Bryon Reis and colleagues, with an educational murray from [employer]. Review of Systems Const Denies chills, Denies headache(s) and Denies weight loss ENT Denies headache(s) Card Denies chest pain, Denies syncope, Denies irregular heart rhythm and Denies dyspnea Resp Denies chest congestion, Denies cough and Denies dyspnea GI Denies abdominal pain, Denies change in stool character, Denies nausea and Denies vomiting Musc Denies deformity and Denies joint swelling Neuro Denies syncope and Denies headache(s) Physical exam (Primary Care) Vital Signs: Last Vital Signs Pulse 62 11/02/23 08:33 BP 128/78 11/02/23 08:33 Pulse Ox 93 11/02/23 08:33 Oxygen Delivery Method Room Air 11/02/23 08:33 BMI result Body Mass Index 24.8 Tobacco/Smoking Status: Tobacco use Status Tobacco use date assessed 04/29/23 11/02/23 08:34 Patient Tobacco Use Status Never used Tobacco 11/02/23 08:34 Tobacco use type Cigarette 11/02/23 08:35 e-Cigarette/Vaping Use Never Used 11/02/23 08:34 PHQ-9: PHQ-9 Score PHQ-9: Total score 0 11/02/23 08:47 Depression Screening Interpretation: Negative Thrive Assessment: Date of Thrive Assessment Date Thrive assessed 04/29/23 11/02/23 08:34 Const General: cooperative, comfortable, no acute distress and alert Neck Neck: Yes no lymphadenopathy Thyroid: Thyroid normal Resp Effort & Inspection: normal respiratory effort Auscultation: clear to auscultation bilaterally Percussion: percussion normal Cardio Jugular venous distension: no JVD Palpation: normal PMI Rate: regular rate Rhythm: regular rhythm Heart sounds: S1 normal heart sound present and S2 normal heart sound present GI Inspection: Yes normal to inspection Palpation (GI): No hepatosplenomegaly present Skin General skin exam: no rashes or lesions noted Extrem General: Yes no clubbing, cyanosis or edema Assessment and Plan Assessment & Plan (1) Type 2 diabetes mellitus with hyperlipidemia: Code(s): E11.69 - Type 2 diabetes mellitus with other specified complication; E78.5 - Hyperlipidemia, unspecified Plan: stable; same rx; do labs (2) Hyperlipidemia associated with type 2 diabetes mellitus: Code(s): E11.69 - Type 2 diabetes mellitus with other specified complication; E78.5 - Hyperlipidemia, unspecified Plan: stable; same rx (3) Depression: Code(s): F32.9 - Major depressive disorder, single episode, unspecified Plan: stable; same rx Orders: Orders Lipid Panel Today Z13.220 - Encounter for screening for lipoid disorders Complete Blood Count Auto Diff Today Z13.0 - Encounter for screening for diseases of the blood and blood-forming organs and certain disorders involving the immune mechanism Hemoglobin A1c Today R73.9 - Hyperglycemia, unspecified Comprehensive [place]. Panel Fast Today Z13.9 - Encounter for screening, unspecified Coding Level of Care Code Est Pt Level 4 (57061) Diagnoses Type 2 diabetes mellitus with hyperlipidemia E11.69; E78.5 Hyperlipidemia associated with type 2 diabetes mellitus E11.69; E78.5 Depression F32.9
== END 2023-11-02 08:53 | disposition home or self-care (01) ==
PROVIDERS: PCP Internal Medicine; Visit Provider Internal Medicine
DX: E11.69 Type 2 diabetes mellitus with other specified complication (principal); E78.5 Hyperlipidemia, unspecified; F32.9 Major depressive disorder, single episode, unspecified
CPT/HCPCS: 99214

== ENCOUNTER 2024-01-28 06:55 | Outpatient (REF) | payer OTHER, SELFPAY ==
[2024-01-28 07:11] LABS: MANUAL DIFF FLAG NO
[2024-01-28 08:01] LABS: Basophils Percent Auto 0.6 % (0-2); Eosinophils Absolute Auto 0.1 X10*3/uL (0.0-0.4); Eosinophils Percent Auto 2.1 % (0-4); Hemoglobin 15.4 g/dl (14.0-18.0); Imm Gran Abs Auto 0.02 X10*3/uL (0.00-0.03); Imm Gran Pct Auto 0.3 % (0.0-0.4); Lymphocytes Absolute Auto 1.5 X10*3/uL (1.2-4.9); Lymphocytes Percent Auto 23.7 % (20-40); Mean Corpuscular HGB Conc 31.4 g/dl (31.0-36.0); Mean Corpuscular Hemoglobin 28.5 pg (27.0-33.0); Mean Corpuscular Volume 90.7 fL (80.0-98.0); Mean Platelet Volume 9.9 fL (9.4-12.4); Monocytes Absolute Auto 0.6 X10*3/uL (0.1-1.2); Monocytes Percent Auto 9.9 % (2-11); Neutrophils Percent Auto 63.4 % (45-73); Platelet Count 262 X10*3/uL (160-400); Red Cell Distribution Width 14.6 % (11.0-16.0); White Blood Count 6.3 X10*3/uL (4.8-10.8)
[2024-01-28 08:09] LABS: Estimated Average Glucose 160 mg/dL; Hemoglobin A1C 223.1648 umol/L; Hemoglobin A1c % 7.2 % (<6.0); Total Hemoglobin (HGBA1C) 4046.3408 umol/L
[2024-01-28 08:42] LABS: Alanine Aminotransferase 40 U/L (0-40); Albumin Level 4.1 g/dL (3.5-5.0); Alkaline Phosphatase 90 U/L (39-117); Anion Gap 13 (12-20); Aspartate Amino Transferase 40 U/L (5-37); Bilirubin Total 0.4 mg/dL (0.0-1.0); Blood Urea Nitrogen 17 mg/dL (9-16); Calcium 10.1 mg/dL (8.4-10.2); Carbon Dioxide 24 mmol/L (22-29); Chloride 110 mmol/L (96-108); Cholesterol 133 mg/dL (<200); Estimated Glomerular Filt Rate > 60; Glucose Fasting 140 mg/dL (60-99); HDL Cholesterol 44 mg/dL (>40); LDL Cholesterol Calculated 78 mg/dL (<100); Potassium 4.4 mmol/L (3.3-5.1); Sodium 143 mmol/L (135-145); Total Protein 7.9 g/dL (6.5-8.0); Triglycerides 56 mg/dL (<150)
== END 2024-01-28 06:56 | disposition home or self-care (01) ==
LOC: HO.LAB 06:55
PROVIDERS: PCP Internal Medicine; Visit Provider Internal Medicine
DX: Z13.0 Encounter for screening for diseases of the blood and blood-forming organs and certain disorders involving the immune mechanism (principal); Z13.220 Encounter for screening for lipoid disorders; R73.9 Hyperglycemia, unspecified; Z13.9 Encounter for screening, unspecified
CPT/HCPCS: 36415; 80053; 80061; 83036; 85025

== ENCOUNTER 2024-02-03 07:40 | Outpatient (AMB) | payer OTHER, SELFPAY ==
[2024-02-03 08:33] VITALS: BP 110/64; PULSE 64; O2SAT 93; BMI 24.9
--- NOTE | 2024-02-03 08:33 | A.OFFPC_ITS ---
Vital Signs 02/03/24 08:33 Height 5 ft 8 in Weight 164 lb BMI 24.9 BP 110/64 Blood Pressure Location Lt brachial Position Sitting Pulse 64 Pulse Source Pulse Oximeter Pulse Oximetry (%) 93 Oxygen Delivery Method Room Air Intake Visit Reasons: 3 month follow up Nut Process Helper Required: Yes Nut Process Helper Language: Cigar Patcher Name: [id number] Accompanied by: Self / Same As Patient Allergies No Known Allergies [No Known Allergies*] Allergy (Verified 02/03/24 08:34) Medication List - Last Reconciled 02/03/24 by Fredy Watkins MD atorvastatin 40 mg PO DAILY 90 days [bed rails As directed] blood sugar diagnostic (FreeStyle Lite Strips) 1 strip miscellaneous TID 90 days blood-glucose meter (FreeStyle Lite Meter kit) As directed bupropion HCl XL 1 tab PO BEDTIME cane As directed cholecalciferol (vitamin D3) 25 mcg PO DAILY 90 days cyclobenzaprine 10 mg PO TID PRN empagliflozin (Jardiance) 25 mg PO DAILY 90 days glucose (Dex4 Glucose) 12 grams (3 x 4 gram) PO Q15M PRN insulin aspart U-100 (Novolog U-100 Insulin aspart) 5-7 units with meals subcut 3 times a day; 30 days insulin glargine (Lantus U-100 Insulin) 15 units (0.15 mL) subcut QPM 30 days insulin syringe-needle U-100 (BD Insulin Syringe Ultra-Fine) 1 each miscellaneous 4 times a day; lancets (FreeStyle Lancets) Three times a day [Medline Remedy with Olivamine Skin Repair Cream As directed] naproxen 500 mg PO BID PRN omeprazole 20 mg PO DAILY oxycodone-acetaminophen 5-325 mg (Percocet) 1 tab PO Q4-6H PRN 7 days pen needle, diabetic (BD Bharati 2nd Gen Pen Needle) 5 times a day [shower chair As directed] sitagliptin phos-metformin 50-1,000 mg ER (Janumet XR) 1 tab PO BID 90 days [walker As directed] zolpidem 10 mg PO BEDTIME PRN Tobacco use date assessed: 04/29/23 Fall risk assessment: No Falls in past year Last assessed Fall Risk: 02/03/24 Dental Screening Dental Screen Date: 04/29/23 HPI 3 month follow up HPI Details passed a kidney stone last week on the right; has happened before [facility] Medical History Hyperlipidemia associated with type 2 diabetes mellitus Hx of renal calculi Depression Vitamin D deficiency 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 (BMI 25.0-29.9) 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 Dyslipidemia Diabetes type 2, uncontrolled Surgical History Hx of shoulder surgery Hx of colonoscopy Hx of lithotripsy Family History Mother Diabetes Father Alcoholism Other Substance use disorder Social History Housing: Apartment Alcohol intake: never Patient Tobacco Use Status: Never used Tobacco Tobacco use type: Cigarette e-Cigarette/Vaping Use: Never Used Second Hand Smoke Exposure: No service: No Current occupational status: disabled Current occupation: rt handed Cognitive needs: No Hearing needs: No Vision needs: No Questionnaire Thrive Questionnaire Date Thrive assessed: 04/29/23 GALEN-7 AMB Questionnaire GALEN-7 Date GALEN - 7 assessed: 04/29/23 Source: Developed by Drs. Juve Hutton, Huong Shannon, Bryon Reis and colleagues, with an educational murray from [email or web address]. Review of Systems Const Denies chills, Denies headache(s) and Denies weight loss ENT Denies headache(s) Card Denies chest pain, Denies syncope, Denies irregular heart rhythm and Denies dyspnea Resp Denies chest congestion, Denies cough and Denies dyspnea GI Denies abdominal pain, Denies change in stool character, Denies nausea and Denies vomiting Musc Denies deformity and Denies joint swelling Neuro Denies syncope and Denies headache(s) Physical exam (Primary Care) Vital Signs: Last Vital Signs Pulse 64 02/03/24 08:33 BP 110/64 02/03/24 08:33 Pulse Ox 93 02/03/24 08:33 Oxygen Delivery Method Room Air 02/03/24 08:33 BMI result Body Mass Index 24.9 Tobacco/Smoking Status: Tobacco use Status Tobacco use date assessed 04/29/23 02/03/24 08:36 Patient Tobacco Use Status Never used Tobacco 02/03/24 08:36 Tobacco use type Cigarette 02/03/24 08:36 e-Cigarette/Vaping Use Never Used 02/03/24 08:36 Thrive Assessment: Date of Thrive Assessment Date Thrive assessed 04/29/23 02/03/24 08:36 Const General: cooperative, comfortable, no acute distress and alert Neck Neck: Yes no lymphadenopathy Thyroid: Thyroid normal Resp Effort & Inspection: normal respiratory effort Auscultation: clear to auscultation bilaterally Percussion: percussion normal Cardio Jugular venous distension: no JVD Palpation: normal PMI Rate: regular rate Rhythm: regular rhythm Heart sounds: S1 normal heart sound present and S2 normal heart sound present GI Inspection: Yes normal to inspection Palpation (GI): No hepatosplenomegaly present Skin General skin exam: no rashes or lesions noted Extrem General: Yes no clubbing, cyanosis or edema Coding Level of Care Code Est Pt Level 3 (10987) Diagnoses Nephrolithiasis N20.0 Assessment & Plan Assessment & Plan (1) Nephrolithiasis: Code(s): N20.0 - Calculus of kidney Category: Medical Plan: renal US Orders: Orders US renal BI Today R10.9 - Unspecified abdominal pain
== END 2024-02-03 08:47 | disposition home or self-care (01) ==
PROVIDERS: PCP Internal Medicine; Visit Provider Internal Medicine
DX: N20.0 Calculus of kidney (principal)

== ENCOUNTER → 2024-02-03 07:40 | Outpatient (BNVA) | payer OTHER, SELFPAY | PROVIDERS: PCP Internal Medicine; Visit Provider Internal Medicine | DX: N20.0 Calculus of kidney (principal) | CPT/HCPCS: 99212 ==

== ENCOUNTER 2024-02-23 08:33 | Outpatient (REF) | payer OTHER, SELFPAY ==
--- NOTE | ~2024-02-23 | US_ITS ---
EXAMINATION: US RETROPERITONEAL LIMITED (RENAL ONLY) CLINICAL INFORMATION: Abdominal pain. COMPARISON: CT abdomen and pelvis on 09/05/2020 TECHNIQUE: Real-time imaging of the kidneys. FINDINGS: RIGHT KIDNEY: 12.6 x 6.4 x 5.6 cm (SAG x AP x TRV). The kidney is normal in size, contour, and echogenicity. Renal cortical thickness is normal. No hydronephrosis. There are multiple simple cysts which do not require follow-up. There are multiple nonobstructing calculi, the largest measuring 0.3 cm. LEFT KIDNEY: 11.7 x 6.7 x 4.8 cm (SAG x AP x TRV). The kidney is normal in size, contour, and echogenicity. Renal cortical thickness is normal. No hydronephrosis. There is a 0.9 cm simple cyst in the upper pole which is not require follow-up. There are multiple nonobstructing calculi. The largest measures 0.5 cm. US/US renal BI IMPRESSION: Bilateral nonobstructing renal calculi. Electronically signed by: Tosha Mo MD 02/23/2024 08:47 PM EST
--- OUTSIDE RECORDS SUMMARY | 2024-02-29 00:23 | XMS_ITS | Continuity of Care Document ---
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 Onset: 09/27/2022 Dyslipidemia Juan Ronquillo M.D. Onset: 0 09/27/2022 Hyperlipidemia Juan Ronquillo M.D. Onset: 0 09/27/2022 Vitamin D deficiency Juan Ronquillo M.D. Ons et: 09/27/2022 H/O: depression Juan Ronquillo M.D. Onset: 0 09/27/2022 Social History Type Date Description Comments Sex Unknown Tobacco Use Start: Unknown Never Smoked Cigarettes Smoking Status Reviewed: 09/27/22 Never Smoked Cigaret madonna ETOH Use Never used alcohol Allergies and adverse reactions Description No Known Drug Allergies Medications Active Medications SIG Qnty Indications Order ing Provider Date Freestyle Jimenez 3/[place]/Glucose Monitoring [id number] Device use with sensors to check blood sugar dx:e11.9 1units E11.9 Juan Ronquillo M.D. 08/10/2023 Freestyle Jimenez 3/Sensor/Glucose Monitoring [id number] Misc as directed 3units E11.9 Juan Ronquillo M.D. 08/10/2023 [id number] Tablets Take One Tablet By Mouth Twice A Day as Needed For Pain Fredy Watkins Zolpidem [id number] Tablets [place] Bernadine Tableta Via Oral Al Acostarse [place] Unknown Bupropion Hydrochloride ER (XL)150mg Tablets ER 24HR [place] Bernadine Tableta Via Oral Cada [place] Unknown [id number]/ML Solution Inject 5-7 Units Subcutaneous With Meals Three Times A Day. Fredy Watkins Odzgty224Iobt/ML Solution Inject 20 Units Subcutaneously Every Evening Fredy Watkins Freestyle Lite TestStrips Use 1 Strip as Directed 3 Times A Day Melinda Stevens Vitamin D High Quczqmq09snn (1000 Ut) Capsules [place] Bernadine Capsula Via Oral Cada Marily Fredy Watkins [id number] Tablets [place] Bernadine Tableta Via Oral Cada Marily Fredy Watkins Atorvastatin [id number] Tablets Take One Tablet By Mouth Every Day Fredy Waktins Vital Signs Date Vital Result Comment 11/17/2023 9:51am BP Systolic 110 mmHg BP Diastolic 80 mmHg Heart Rate 72 /min Height 66.5 inches 5'6.50 Weight 163.25 lb BMI (Body Mass Index) 26.0 kg/m2 Results Test Acquired Date Facility Test Result H/L [place] Laboratory test finding 11/17/2023 Inhouse Hemoglobin A1c 7.3% Glucose Fingerstick 129 Laboratory test finding 08/10/2023 Inhouse Hemoglobin A1c 7.6% Glucose Fingerstick 112 Laboratory test finding 01/06/2023 Inhouse Hemoglobin A1c 7.4% Glucose Fingerstick 100 Laboratory test finding 09/27/2022 [facility] Gad65 Autoantibodies <5.0 1 Laboratory test finding 09/27/2022 Inhouse Hemoglobin A1c 7.8% Glucose Fingerstick 182 1 Reference range: 0.0 to 5.0 Unit: U/mL Test performed at [address] [address] Procedures Date Code Description Status 11/17/2023 89411 Glucose Monitoring Interpeta tion And Report Completed Medical Devices Description No Information Available Encounters Type Date Location Provider Dx Diagnosis Office Visit 11/17/2023 10:00a Main Office Juan Ronquillo M.D. E11.9 Type 2 diabetes mellitus without complications Assessments Date Code Description Provider 11/17/2023 E11.9 Type 2 diabetes mellitus without complications Juan Ronquillo M.D. Plan of Treatment Future Appointment(s):* 03/01/2024 9:00 am - Juan Ronquillo M.D. at Main Office 11/17/2023 - uJan Ronquillo M.D.* E11.9 Type 2 diabetes mellitus without complications Functional Status Description No Information Available Mental Status Description No Information Available Referrals Description No Information Available
== END 2024-02-23 08:34 | disposition home or self-care (01) ==
LOC: HO.US 08:33
PROVIDERS: PCP Internal Medicine; Visit Provider Internal Medicine
DX: R10.9 Unspecified abdominal pain (principal)
CPT/HCPCS: 76775

== ENCOUNTER 2024-05-07 08:11 | Outpatient (AMB) | payer OTHER, SELFPAY ==
--- NOTE | 2024-05-07 08:28 | MHC.PC.OV ---
Vital Signs 05/07/24 08:31 Height 5 ft 8 in Weight 161 lb BMI 24.5 BP 120/66 Blood Pressure Location Lt brachial Position Sitting Pulse 76 Pulse Source Pulse Oximeter Temp 97.8 F Temp Source Temporal Artery Scan Pulse Oximetry (%) 95 Oxygen Delivery Method Room Air Intake Visit Reasons: 3mth f/u Intake Note: Patient is here to follow up on DM. Team Leader Surgery Required: No Allergist/Immunologist Physician: Not Required per policy Accompanied by: Self / Same As Patient Allergies No Known Allergies [No Known Allergies*] Allergy (Verified 05/07/24 08:30) Medication List - Last Reconciled 05/07/24 by Fredy Watkins MD atorvastatin 40 mg PO DAILY 90 days [bed rails As directed] blood sugar diagnostic (FreeStyle Lite Strips) 1 strip miscellaneous TID 90 days blood-glucose meter (FreeStyle Lite Meter kit) As directed bupropion HCl XL 1 tab PO BEDTIME cane As directed cholecalciferol (vitamin D3) 25 mcg PO DAILY 90 days cyclobenzaprine 10 mg PO TID PRN empagliflozin (Jardiance) 25 mg PO DAILY 90 days glucose (Dex4 Glucose) 12 grams (3 x 4 gram) PO Q15M PRN insulin aspart U-100 (Novolog U-100 Insulin aspart) 5-7 units with meals subcut 3 times a day; 30 days insulin glargine (Lantus U-100 Insulin) 15 units (0.15 mL) subcut QPM 30 days insulin syringe-needle U-100 (BD Insulin Syringe Ultra-Fine) 1 each miscellaneous 4 times a day; lancets (FreeStyle Lancets) Three times a day [Medline Remedy with Olivamine Skin Repair Cream As directed] naproxen 500 mg PO BID PRN omeprazole 20 mg PO DAILY oxycodone-acetaminophen 5-325 mg (Percocet) 1 tab PO Q4-6H PRN 7 days pen needle, diabetic (BD Bharati 2nd Gen Pen Needle) 5 times a day [shower chair As directed] sitagliptin phos-metformin 50-1,000 mg ER (Janumet XR) 1 tab PO BID 90 days [walker As directed] zolpidem 10 mg PO BEDTIME PRN Tobacco use date assessed: 05/07/24 Fall risk assessment: No Falls in past year Last assessed Fall Risk: 05/07/24 Dental Screening Dental Screen Date: 05/07/24 Did you have a dental visit in the last 12 months?: No Did you have a dental problem in the last 6 months where you did not have access to dental care?: No Was dental information given to patient?: No HPI 3mth f/u HPI Details DM hypertension and hyperlipidemia on rx; doing well; compliant [facility] Medical History Hyperlipidemia associated with type 2 diabetes mellitus Hx of renal calculi Depression Vitamin D deficiency Overweight (BMI 25.0-29.9) 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 Dyslipidemia Diabetes type 2, uncontrolled Surgical History Hx of shoulder surgery Hx of colonoscopy Hx of lithotripsy Family History Mother Diabetes Father Alcoholism Other Substance use disorder Social History Housing: Apartment Alcohol intake: never Patient Tobacco Use Status: Never used Tobacco Tobacco use type: Cigarette e-Cigarette/Vaping Use: Never Used Second Hand Smoke Exposure: No service: No Current occupational status: disabled Current occupation: rt handed Cognitive needs: No Hearing needs: No Vision needs: No Questionnaire PHQ-9 Over the last 2 weeks, how often have you been bothered by any of the following problems? 1. Little interest or pleasure in doing things: not at all 2. Feeling down, depressed, or hopeless: not at all 3. Trouble falling or staying asleep, or sleeping too much: not at all 4. Feeling tired or having little energy: not at all 5. Poor appetite or overeating: not at all 6. Feeling bad about yourself - or that you are a failure or have let yourself or your family down: not at all 7. Trouble concentrating on things, such as reading the newspaper or watching television: not at all 8. Moving or speaking so slowly that other people could have noticed. Or the opposite - being so fidgety or restless that you have been moving around a lot more than usual: not at all 9. Thoughts that you would be better off or of hurting yourself in some way: not at all Total score: 0 Depression Screening Interpretation: Negative Depression Screening Done: Yes Source: Developed by Huong Barrera Kurt Kroenke and colleagues, with an educational murray from [employer]. Thrive Questionnaire Date Thrive assessed: 05/07/24 I am a: Patient What is your living situation today?: I have a steady place to live Within the past 12 months, did the food you bought not last and you didn't have the money to get more?: Never true Within the past 12 months, did you worry whether your food would run out before you got money to buy more?: Never true Do you have trouble paying for medicines?: No Do you have trouble getting transportation to medical appointments?: No Do you have trouble paying your heating and electricity bill?: No Do you have trouble taking care of your child, family member or friend?: No Do you have trouble with day-to-day activities such as bathing, preparing meals, shopping, managing finances, etc.?: No Are you currently unemployed and looking for a job?: No Are you interested in more education?: No Please select the resources that you would like help with: None Currently or been in a relationship where the following occur: No concerns reported THRIVE Score: 0 AUDIT C Alcohol Use Questionnaire (AUDIT-C) 1. How often do you have a drink containing alcohol?: Never Total Score: 0 GALEN-7 AMB Questionnaire GALEN-7 Date GALEN - 7 assessed: 05/07/24 Feeling nervous, anxious, or on edge: 0 = Not at all Not being able to stop or control worryin = Not at all Worrying too much about different things: 0 = Not at all Trouble relaxin = Not at all Being so restless that it is hard to sit still: 0 = Not at all Becoming easily annoyed or irritable: 0 = Not at all Feeling afraid as if something awful might happen: 0 = Not at all Total GALEN-7 score (0-4 normal; 5-9 mild; 10-14 moderate; 15-21 severe): 0 Source: Developed by Huong Barrera Kurt Kroenke and colleagues, with an educational murray from [employer]. Review of Systems Const Denies chills, Denies headache(s) and Denies weight loss ENT Denies headache(s) Card Denies chest pain, Denies syncope, Denies irregular heart rhythm and Denies dyspnea Resp Denies chest congestion, Denies cough and Denies dyspnea GI Denies abdominal pain, Denies change in stool character, Denies nausea and Denies vomiting Musc Denies deformity and Denies joint swelling Neuro Denies syncope and Denies headache(s) Physical exam (Primary Care) Vital Signs: Last Vital Signs Temp 97.8 F 05/07/24 08:31 Pulse 76 05/07/24 08:31 BP 120/66 05/07/24 08:31 Pulse Ox 95 05/07/24 08:31 Oxygen Delivery Method Room Air 05/07/24 08:31 BMI result Body Mass Index 24.5 Tobacco/Smoking Status: Tobacco use Status Tobacco use date assessed 05/07/24 05/07/24 08:40 Patient Tobacco Use Status Never used Tobacco 05/07/24 08:28 Tobacco use type Cigarette 05/07/24 08:28 e-Cigarette/Vaping Use Never Used 05/07/24 08:28 PHQ-9: PHQ-9 Score PHQ-9: Total score 0 05/07/24 08:51 Depression Screening Interpretation: Negative Thrive Assessment: Date of Thrive Assessment Date Thrive assessed 05/07/24 05/07/24 08:40 Currently or been in a relationship where the following occur: No concerns reported Const General: cooperative, comfortable, no acute distress and alert Neck Neck: Yes no lymphadenopathy Thyroid: Thyroid normal Resp Effort & Inspection: normal respiratory effort Auscultation: clear to auscultation bilaterally Percussion: percussion normal Cardio Jugular venous distension: no JVD Palpation: normal PMI Rate: regular rate Rhythm: regular rhythm Heart sounds: S1 normal heart sound present and S2 normal heart sound present GI Inspection: Yes normal to inspection Palpation (GI): No hepatosplenomegaly present Skin General skin exam: no rashes or lesions noted Extrem General: Yes no clubbing, cyanosis or edema Results AMB Hemoglobin A1c AMB Hemoglobin A1c 6.7 % Last Edit by LOLA House on 05/07/24 08:42 Results Reviewed Results Reviewed: Laboratory Last Values Hgb A1c (Clinic) 6.7 % (4.0-6.0) H 05/07/24 08:29 Coding Level of Care Code Est Pt Level 4 (21327) Diagnoses Type 2 diabetes mellitus with hyperlipidemia E11.69; E78.5 Dyslipidemia E78.5 Hyperlipidemia associated with type 2 diabetes mellitus E11.69; E78.5 Assessment & Plan Assessment & Plan (1) Type 2 diabetes mellitus with hyperlipidemia: Code(s): E11.69 - Type 2 diabetes mellitus with other specified complication; E78.5 - Hyperlipidemia, unspecified Category: Medical Plan: stable; same rx (2) Dyslipidemia: Code(s): E78.5 - Hyperlipidemia, unspecified Category: Medical Plan: stable; same rx (3) Hyperlipidemia associated with type 2 diabetes mellitus: Code(s): E11.69 - Type 2 diabetes mellitus with other specified complication; E78.5 - Hyperlipidemia, unspecified Category: Medical Plan: stable; same rx Orders: Orders AMB Hemoglobin A1c Today E11.69 - Type 2 diabetes mellitus with other specified complication, E78.5 - Hyperlipidemia, unspecified
[2024-05-07 08:31] VITALS: BP 120/66; PULSE 76; TEMP 36.6; O2SAT 95; BMI 24.5
== END 2024-05-07 08:59 | disposition home or self-care (01) ==
PROVIDERS: PCP Internal Medicine; Visit Provider Internal Medicine
DX: E11.69 Type 2 diabetes mellitus with other specified complication (principal); E78.5 Hyperlipidemia, unspecified

== ENCOUNTER → 2024-05-07 08:11 | Outpatient (BNVA) | payer OTHER, SELFPAY | PROVIDERS: PCP Internal Medicine; Visit Provider Internal Medicine | DX: E11.69 Type 2 diabetes mellitus with other specified complication (principal); E78.5 Hyperlipidemia, unspecified | CPT/HCPCS: 83036; 99212 ==

== ENCOUNTER 2024-09-27 07:19 | Outpatient (AMB) | payer OTHER, SELFPAY ==
--- OUTSIDE RECORDS SUMMARY | 2024-09-27 07:21 | XMS_ITS | Continuity of Care Document ---
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 Onset: 09/27/2022 Dyslipidemia Juan Ronquillo M.D. Onset: 0 09/27/2022 Hyperlipidemia Juan Ronquillo M.D. Onset: 0 09/27/2022 Vitamin D deficiency Juan Ronquillo M.D. Ons et: 09/27/2022 H/O: depression Juan Ronquillo M.D. Onset: 0 09/27/2022 Social History Type Date Description Comments Sex Male Sex Unknown Tobacco Use Start: Unknown Never Smoked Cigarettes ETOH Use Never used alcohol Allergies and adverse reactions Description No Known Drug Allergies Medications Active Medications SIG Qnty Indications Order ing Provider Date Freestyle Jimenez 3 Plus/Sensor/Glucose Monitoring SystemMisc Apply as Directed; Change Sensor Every 15 Days. 3units E11.9 Juan Ronquillo M.D. 08/20/2024 Mounjaro2.5mg/0.5ML Solution Auto-Inject Inject 0.5 ML Into The Skin Weekly (Subcutaneous). 2units Juan Ronquillo M.D. 03/01/2024 Freestyle Jimenez 3/[place]/Glucose Monitoring [id number] Device use with sensors to check blood sugar dx:e11.9 1units E11.9 Juan Ronquillo M.D. 08/10/2023 [id number] Tablets Take One Tablet By Mouth Twice A Day as Needed For Pain Fredy Watkins Zolpidem [id number] Tablets [place] Bernadine Tableta Via Oral Al Acostarse [place] Unknown Bupropion Hydrochloride ER (XL)150mg Tablets ER 24HR [place] Bernadine Tableta Via Oral Cada [place] Unknown Kewntcv673Hmus/ML Solution Inject 5-7 Units Subcutaneous With Meals Three Times A Day. Fredy Watkins Kvlhzq825Qond/ML Solution Inject 12 Units Subcutaneously Every Evening Fredy Watkins Freestyle Lite TestStrips Use 1 Strip as Directed 3 Times A Day Melinda Stevens Vitamin D High [id number] (1000 Ut) Capsules [place] Bernadine Capsula Via Oral Cada Marily Fredy Watkins [id number] Tablets [place] Bernadine Tableta Via Oral Cada Marily Ferdy Watkins Atorvastatin [id number] Tablets Take One Tablet By Mouth Every Day Fredy Watkins History Medications Freestyle Jimenez 2 Plus/Sensor/Flash Glucose Monitor SystemMisc Apply as Directed; Change Sensor Every 14 Days. E11.9 Juan Ronquillo M.D. 08/20/2024 - 08/20/2024 Vital Signs Date Vital Result Comment 08/30/2024 10:47am BP Systolic 100 mmHg BP Diastolic 60 mmHg Heart Rate 72 /min Height 66.5 inches 5'6.50 Weight 156.12 lb BMI (Body Mass Index) 24.8 kg/m2 Results Test Acquired Date Facility Test Result H/L Range N ote Hemoglobin A1c 08/30/2024 Inhouse Hemoglobin A1c 6.4% Glucose Fingerstick 08/30/2024 Inhouse Glucose Fingerstick 91 Hemoglobin A1c 03/01/2024 Inhouse Hemoglobin A1c 7.4% Glucose Fingerstick 03/01/2024 Inhouse Glucose Fingerstick 178 Hemoglobin A1c 11/17/2023 Inhouse Hemoglobin A1c 7.3% Glucose Fingerstick 11/17/2023 Inhouse Glucose Fingerstick 129 Hemoglobin A1c 08/10/2023 Inhouse Hemoglobin A1c 7.6% Glucose Fingerstick 08/10/2023 Inhouse Glucose Fingerstick 112 Hemoglobin A1c 01/06/2023 Inhouse Hemoglobin A1c 7.4% Glucose Fingerstick 01/06/2023 Inhouse Glucose Fingerstick 100 Gad65 Autoantibodies 09/27/2022 [facility] Gad65 Autoantibodies <5.0 1 Hemoglobin A1c 09/27/2022 Inhouse Hemoglobin A1c 7.8% Glucose Fingerstick 09/27/2022 Inhouse Glucose Fingerstick 182 1 Reference range: 0.0 to 5.0 Unit: U/mL Test performed at [facility] [address] Procedures Date Code Description Status 08/30/2024 19871 Glucose Monitoring Interpeta tion And Report Completed 11/17/2023 59283 Glucose Monitoring Interpeta tion And Report Completed Medical Devices Description No Information Available Encounters Type Date Location Provider Dx Diagnosis Office Visit 08/30/2024 10:30a Main Office Juan Ronquillo M.D. E11.9 Type 2 diabetes mellitus without complications Assessments Date Code Description Provider 08/30/2024 E11.9 Type 2 diabetes mellitus without complications Juan Ronquillo M.D. Plan of Treatment Future Appointment(s):* 01/24/2025 10:00 am - Juan Ronquillo M.D. at Main Office 08/30/2024 - Juan Ronquillo M.D.* E11.9 Type 2 diabetes mellitus without complications Functional Status Description No Information Available Mental Status Description No Information Available Referrals Description No Information Available
--- NOTE | 2024-09-27 07:57 | MHC.PC.OV ---
Vital Signs 09/27/24 08:01 Height 5 ft 8 in Weight 157 lb BMI 23.9 BP 120/72 Blood Pressure Location Lt brachial Position Sitting Intake Visit Reasons: Transfer Care from Dr. Watkins Follow Up Stencil Inspector Required: No Accompanied by: Daughter Allergies No Known Allergies (No Known Allergies*) Allergy (Verified 09/27/24 08:10) Medication List - Last Reconciled 09/27/24 by Melinda Lindsay MD atorvastatin 40 mg PO DAILY 90 days [bed rails As directed] blood sugar diagnostic (FreeStyle Lite Strips) 1 strip miscellaneous TID 90 days blood-glucose meter (FreeStyle Lite Meter kit) As directed bupropion HCl XL 1 tab PO BEDTIME cane As directed cholecalciferol (vitamin D3) 25 mcg PO DAILY 90 days empagliflozin (Jardiance) 25 mg PO DAILY 90 days glucose (Dex4 Glucose) 12 grams (3 x 4 gram) PO Q15M PRN insulin aspart U-100 (Novolog U-100 Insulin aspart) 5-7 units with meals subcut 3 times a day; 30 days insulin glargine (Lantus U-100 Insulin) 15 units (0.15 mL) subcut QPM 30 days insulin syringe-needle U-100 (BD Insulin Syringe Ultra-Fine) 1 each miscellaneous 4 times a day; lancets (FreeStyle Lancets) Three times a day [Medline Remedy with Olivamine Skin Repair Cream As directed] naproxen 500 mg PO BID PRN omeprazole 20 mg PO DAILY pen needle, diabetic (BD Bharati 2nd Gen Pen Needle) 5 times a day [shower chair As directed] tirzepatide (Mounjaro) 2.5 mg subcut QWEEK [walker As directed] zolpidem 10 mg PO BEDTIME PRN Tobacco use date assessed: 05/07/24 Fall risk assessment: No Falls in past year Last assessed Fall Risk: 09/27/24 Dental Screening Dental Screen Date: 09/27/24 Did you have a dental visit in the last 12 months?: Yes Did you have a dental problem in the last 6 months where you did not have access to dental care?: No Was dental information given to patient?: Patient has dentist HPI HPI Comments History of Present Illness Details The patient is a 64-year-old male presenting for chronic condition management and preventative care. He has a history of diabetes mellitus with a recent improvement in HbA1c from 6.7% to 5.7%, indicating better glycemic control. The patient is currently on Mounjaro for diabetes management, which he has been using for approximately two months. The patient also has hyperlipidemia, with a previous LDL cholesterol level of 78 mg/dL, which is slightly above the target for diabetic patients. He is on atorvastatin 40 mg for lipid management. The patient experiences moderate depression, with a PHQ-9 score of 16, and is currently managed with bupropion. He denies any suicidal ideation and continues follow-up with a mental health provider. He reports gastroesophageal reflux disease, managed with omeprazole as needed. The patient has a history of sleep disturbance, for which he uses zolpidem. Recently, there has been a concern for cognitive decline, with forgetfulness noted over the past two to three months. A referral to neurology is planned for further evaluation. In terms of preventative care, the patient underwent a colonoscopy in 2019, which revealed a tubular adenoma, and he is due for a follow-up in five years. He is also scheduled to receive a pneumonia vaccination, as he is over 65 years old. 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 Dyslipidemia Diabetes type 2, uncontrolled Surgical History Hx of shoulder surgery Hx of colonoscopy Hx of lithotripsy Family History Mother Diabetes Father Alcoholism Other Substance use disorder Social History Housing: Apartment Alcohol intake: never Patient Tobacco Use Status: Never used Tobacco Tobacco use type: Cigarette e-Cigarette/Vaping Use: Never Used Second Hand Smoke Exposure: No service: No Current occupational status: disabled Current occupation: rt handed Cognitive needs: No Hearing needs: No Vision needs: No Questionnaire PHQ-9 Over the last 2 weeks, how often have you been bothered by any of the following problems? 1. Little interest or pleasure in doing things: more than half the days 2. Feeling down, depressed, or hopeless: more than half the days 3. Trouble falling or staying asleep, or sleeping too much: more than half the days 4. Feeling tired or having little energy: more than half the days 5. Poor appetite or overeating: more than half the days 6. Feeling bad about yourself - or that you are a failure or have let yourself or your family down: more than half the days 7. Trouble concentrating on things, such as reading the newspaper or watching television: more than half the days 8. Moving or speaking so slowly that other people could have noticed. Or the opposite - being so fidgety or restless that you have been moving around a lot more than usual: more than half the days 9. Thoughts that you would be better off or of hurting yourself in some way: not at all Total score: 16 Depression Screening Interpretation: Positive (no suicidal thoughts) Depression Screening Follow-up: Existing condition, In treatment, Community Mental Health Worker F/U and Follow-up Visit Requested Depression Screening Done: Yes 13187 - PHQ-9 Billing: Yes Source: Developed by Drs. Juve Hutton, Huong Shannon, Bryon Reis and colleagues, with an educational murray from [employer] Thrive Questionnaire Date Thrive assessed: 09/27/24 I am a: Patient What is your living situation today?: I have a steady place to live Within the past 12 months, did the food you bought not last and you didn't have the money to get more?: Never true Within the past 12 months, did you worry whether your food would run out before you got money to buy more?: Never true Do you have trouble paying for medicines?: No Do you have trouble getting transportation to medical appointments?: No Do you have trouble paying your heating and electricity bill?: No Do you have trouble taking care of your child, family member or friend?: No Do you have trouble with day-to-day activities such as bathing, preparing meals, shopping, managing finances, etc.?: No Are you currently unemployed and looking for a job?: Yes Are you interested in more education?: Yes Please select the resources that you would like help with: None Currently or been in a relationship where the following occur: No concerns reported THRIVE Score: 0 AUDIT C Alcohol Use Questionnaire (AUDIT-C) 1. How often do you have a drink containing alcohol?: Never Total Score: 0 Score Reviewed/Action Taken: No GALEN-7 AMB Questionnaire GALEN-7 Date GALEN - 7 assessed: 09/27/24 Feeling nervous, anxious, or on edge: 2 = More than half the days Not being able to stop or control worryin = More than half the days Worrying too much about different things: 2 = More than half the days Trouble relaxin = More than half the days Being so restless that it is hard to sit still: 2 = More than half the days Becoming easily annoyed or irritable: 2 = More than half the days Feeling afraid as if something awful might happen: 2 = More than half the days Total GALNE-7 score (0-4 normal; 5-9 mild; 10-14 moderate; 15-21 severe): 14 Source: Developed by Drs. Juve Hutton, Huong Shannon, Bryon Reis and colleagues, with an educational murray from [employer] GALEN-7 Assessment Billing GALEN-7 Assessment Tool: GALEN-7 Assessment 19403 Review of Systems Const All systems reviewed & are unremarkable except as noted in HPI and below Card Denies chest pain at rest, Denies chest pain with activity, Denies edema, Denies irregular heart rhythm, Denies claudication, Denies dyspnea, Denies dyspnea on exertion, Denies orthopnea, Denies paroxysmal nocturnal dyspnea and Denies slow heart rate Resp Denies cough, Denies dyspnea and Denies dyspnea on exertion GI Denies abdominal pain, Denies change in bowel habits, Denies excessive flatus, Denies nausea and Denies vomiting Denies urinary hesitancy, Denies urinary incontinence and Denies urinary urgency Musc Denies abnormal gait, Denies atrophy, Denies deformity and Denies limited range of motion Skin/Breast Denies bleeding lesions, Denies changing lesions and Denies rash Neuro Denies abnormal gait and Denies lack of coordination Physical exam (Primary Care) Vital Signs: Last Vital Signs BP 120/72 09/27/24 08:01 BMI result Body Mass Index 23.9 Tobacco/Smoking Status: Tobacco use Status Tobacco use date assessed 05/07/24 09/27/24 07:59 Patient Tobacco Use Status Never used Tobacco 09/27/24 07:59 Tobacco use type Cigarette 09/27/24 07:59 e-Cigarette/Vaping Use Never Used 09/27/24 07:59 PHQ-9: PHQ-9 Score PHQ-9: Total score 16 09/27/24 08:17 Depression Screening Interpretation: Positive (no suicidal thoughts) Depression Screening Follow-up: Existing condition, In treatment, Community Mental Health Worker F/U and Follow-up Visit Requested Thrive Assessment: Date of Thrive Assessment Date Thrive assessed 09/27/24 09/27/24 07:59 Currently or been in a relationship where the following occur: No concerns reported Resp Effort & Inspection: normal respiratory effort Auscultation: clear to auscultation bilaterally Cardio Jugular venous distension: no JVD Rate: regular rate Rhythm: regular rhythm Heart sounds: S1 normal heart sound present and S2 normal heart sound present Extrem General: Yes full ROM Results AMB Hemoglobin A1c AMB Hemoglobin A1c 5.7 % Last Edit by LOLA Funk on 09/27/24 08:09 Immunizations pneumoc 20-eliel conj-dip cr(PF) 0.5 mL IM syringe Performing Provider: Melinda Lindsay MD Performing Location: [facility] Administered by: LOLA Funk on 09/27/24 08:24 Dose Route Admin Location Dispensed Lot Number Expiration Date NDC [employer] 0.5 mL IM Left Deltoid 0.5 mL [id number] 09/18/25 8477-3336-98 [employer]ER Total Dispensed Waste 0.5 mL 0 % VIS Given Date VIS Provided VIS Publication Date 09/27/24 Single Vaccine 24 Eligibility Eligibility Date Funding Source Not [facility] Eligible 09/27/24 Private Results Reviewed Results Reviewed: Laboratory Last Values Hgb A1c (Clinic) 5.7 % (4.0-6.0) 09/27/24 07:57 Coding Level of Care Code Est Pt Level 4 (00676) Complex EM visit Add On G2211 Diagnoses Diabetes mellitus, with long-term current use of insulin E11.9; Z79.4 Moderate recurrent major depression F33.1 GALEN (generalized anxiety disorder) F41.1 Hyperlipidemia LDL goal <70 E78.5 Chronic GERD K21.9 Insomnia G47.00 Memory loss R41.3 Additional Codes PHQ-9 - 33756 - PHQ-9 Billing: Yes ([id number]) GALEN-7 Assessment Billing - GALEN-7 Assessment Tool: GALEN-7 Assessment 52978 ([id number]) Time Spent (min) 24 Assessment & Plan Assessment & Plan (1) Diabetes mellitus, with long-term current use of insulin: Code(s): E11.9 - Type 2 diabetes mellitus without complications; Z79.4 - shelter (current) use of insulin Category: Medical (2) Moderate recurrent major depression: Code(s): F33.1 - Major depressive disorder, recurrent, moderate Category: Medical (3) GALEN (generalized anxiety disorder): Code(s): F41.1 - Generalized anxiety disorder Category: Medical (4) Hyperlipidemia LDL goal <70: Code(s): E78.5 - Hyperlipidemia, unspecified Category: Medical (5) Chronic GERD: Code(s): K21.9 - Gastro-esophageal reflux disease without esophagitis Category: Medical (6) Insomnia: Code(s): G47.00 - Insomnia, unspecified Category: Medical (7) Memory loss: Code(s): R41.3 - Other amnesia Category: Medical Plan The patient will continue with Tyson for diabetes management, given the improvement in HbA1c levels. A follow-up HbA1c test will be scheduled in four months to monitor glycemic control. For hyperlipidemia, the patient will remain on atorvastatin 40 mg, with a lipid panel to be repeated in four months to ensure LDL levels are within target range. The patient's depression will continue to be managed with bupropion, and he will maintain follow-up with his mental health provider. For gastroesophageal reflux disease, the patient will use omeprazole as needed. The patient will continue zolpidem for sleep disturbance management. A neurology referral will be made to evaluate the recent cognitive decline and forgetfulness. Preventative care measures include scheduling a pneumonia vaccination and planning for a follow-up colonoscopy in five years. Patient was informed and verbally consented to the use of an ambient scribe for clinic note documentation during this visit. During the visit, we discussed the management of diabetes with Tyson, noting the improvement in HbA1c levels. We also reviewed the patient's lipid management with atorvastatin and the need for regular monitoring of cholesterol levels. The importance of continuing mental health support for depression was emphasized, along with the use of bupropion. We addressed the management of gastroesophageal reflux disease with omeprazole as needed and discussed the use of zolpidem for sleep disturbances. A referral to neurology was planned to evaluate the recent cognitive decline. Preventative care measures, including the pneumonia vaccination and follow-up colonoscopy, were also discussed. Orders: Orders Vitamin D 25-OH Total 4 Months E55.9 - Vitamin D deficiency, unspecified Comprehensive [place]. Panel Fast 4 Months E11.69 - Type 2 diabetes mellitus with other specified complication, E78.5 - Hyperlipidemia, unspecified AMB Hemoglobin A1c Today E11.649 - Type 2 diabetes mellitus with hypoglycemia without coma Lipid Panel 4 Months E78.5 - Hyperlipidemia, unspecified Microalbumin, Random (w Creat) 4 Months R80.9 - Proteinuria, unspecified Thyroid Stimulating Hormone 4 Months R41.3 - Other amnesia Complete Blood Count Auto Diff 4 Months R41.3 - Other amnesia Pneumococcal 20 Immunization Today Z23 - Encounter for immunization Referrals Neurology Referral R41.3 - Other amnesia Open Access Screening Colonoscopy Referral Z12.12 - Encounter for screening for malignant neoplasm of rectum Medications: Refilled omeprazole 20 mg PO DAILY 90 tabs 2RF Patient Instructions: - Continue taking Mounjaro as prescribed for diabetes management. - Schedule a follow-up HbA1c test in four months. - Continue atorvastatin for cholesterol management and repeat lipid panel in four months. - Maintain follow-up with mental health provider and continue bupropion. - Use omeprazole as needed for acid reflux. - Continue zolpidem for sleep as needed. - Attend neurology appointment for cognitive evaluation. - Receive pneumonia vaccination as scheduled. - Plan for follow-up colonoscopy in five years.
[2024-09-27 08:01] VITALS: BP 120/72; BMI 23.9
== END 2024-09-27 08:23 | disposition home or self-care (01) ==
LOC: HO.HMCH 07:20
PROVIDERS: PCP Internal Medicine; Visit Provider Internal Medicine
DX: E11.9 Type 2 diabetes mellitus without complications (principal); Z79.4 Long term (current) use of insulin; F33.1 Major depressive disorder, recurrent, moderate; F41.1 Generalized anxiety disorder; E78.5 Hyperlipidemia, unspecified; K21.9 Gastro-esophageal reflux disease without esophagitis; G47.00 Insomnia, unspecified; R41.3 Other amnesia; Z23 Encounter for immunization; E11.649 Type 2 diabetes mellitus with hypoglycemia without coma

== ENCOUNTER → 2024-09-27 07:19 | Outpatient (BNVA) | payer OTHER, SELFPAY | PROVIDERS: PCP Internal Medicine; Visit Provider Internal Medicine | DX: K21.9 Gastro-esophageal reflux disease without esophagitis (principal); E78.5 Hyperlipidemia, unspecified; E11.69 Type 2 diabetes mellitus with other specified complication; F33.1 Major depressive disorder, recurrent, moderate; F41.1 Generalized anxiety disorder; G47.00 Insomnia, unspecified; R41.3 Other amnesia; E55.9 Vitamin D deficiency, unspecified; R80.9 Proteinuria, unspecified; Z79.4 Long term (current) use of insulin; Z23 Encounter for immunization | CPT/HCPCS: 83036; 90471; 90677; 96127; 99212 ==

== ENCOUNTER 2024-12-04 08:22 | Outpatient (REF) | payer OTHER, SELFPAY ==
[2024-12-04 14:54] LABS: Folate 11.6 ng/mL (> or = 4.0); Vitamin B12 587 pg/mL (200-900)
== END 2024-12-04 08:23 | disposition home or self-care (01) ==
LOC: HO.HKASLDS 08:22
PROVIDERS: PCP Internal Medicine; Visit Provider Psychiatry & Neurology Neurology
DX: R41.3 Other amnesia (principal); R06.83 Snoring; G47.00 Insomnia, unspecified
CPT/HCPCS: 36415; 82607; 82746; 85652; 99202

== ENCOUNTER 2024-12-04 08:22 | Outpatient (AMB) | payer OTHER, SELFPAY ==
[2024-12-04 08:25] VITALS: BP 110/66; PULSE 64; O2SAT 97; BMI 23.9
--- NOTE | 2024-12-04 08:25 | A.OFFVIS_ITS ---
Vital Signs 12/04/24 08:25 Height 5 ft 8 in Weight 157 lb 2 oz BMI 23.9 BP 110/66 Blood Pressure Location Rt brachial Position Sitting Pulse 64 Pulse Source Pulse Oximeter Pulse Oximetry (%) 97 Oxygen Delivery Method Room Air Intake Visit Reasons: INP-Amnesia Intake Note: Memory loss Insurance Agency Sales Manager Required: Yes Insurance Agency Sales Manager Services: Insurance Agency Sales Manager Offered & Declined Insurance Agency Sales Manager Name: Daughter to mery Monsivais Accompanied by: Daughter Allergies No Known Allergies (No Known Allergies*) Allergy (Verified 12/04/24 08:25) Medication List - Last Reconciled 12/04/24 by Africa Campo MD atorvastatin 40 mg PO DAILY 90 days [bed rails As directed] blood sugar diagnostic (FreeStyle Lite Strips) 1 strip miscellaneous TID 90 days blood-glucose meter (FreeStyle Lite Meter kit) As directed bupropion HCl XL 1 tab PO BEDTIME cane As directed cholecalciferol (vitamin D3) 25 mcg PO DAILY 90 days empagliflozin (Jardiance) 25 mg PO DAILY 90 days glucose (Dex4 Glucose) 12 grams (3 x 4 gram) PO Q15M PRN insulin aspart U-100 (Novolog U-100 Insulin aspart) 5-7 units with meals subcut 3 times a day; 30 days insulin glargine (Lantus U-100 Insulin) 15 units (0.15 mL) subcut QPM 30 days insulin syringe-needle U-100 1 each miscellaneous 4 times a day; lancets (FreeStyle Lancets) Three times a day [Medline Remedy with Olivamine Skin Repair Cream As directed] naproxen 500 mg PO BID PRN omeprazole 20 mg PO DAILY pen needle, diabetic (BD Bharati 2nd Gen Pen Needle) 5 times a day [shower chair As directed] tirzepatide (Mounjaro) 2.5 mg subcut QWEEK [walker As directed] zolpidem 10 mg PO BEDTIME PRN HPI Comments Details: 64y/o Right handed male comes for evaluation of memory loss. He is accompanied by his daughter who helps with history. His family noticed that for past 2 mths he has issues with short term recall and recently frequently repeats himself. He has trouble remembering things in the house, misplaces things often . His daughter takes care of all his finances and his son takes care of the house hold. 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 No h/o head injury , denies any heavy alcohol use. His sisters - older than him were diagnosed with dementia. He has mild snoring , has been on zolpidem for sleep for few years now. 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 Dyslipidemia Diabetes type 2, uncontrolled Surgical History Hx of shoulder surgery Hx of colonoscopy Hx of lithotripsy Family History Mother Diabetes Father Alcoholism Other Substance use disorder Social History Housing: Apartment Alcohol intake: never Patient Tobacco Use Status: Never used Tobacco Tobacco use type: Cigarette e-Cigarette/Vaping Use: Never Used Second Hand Smoke Exposure: No service: No Current occupational status: disabled Current occupation: rt handed Cognitive needs: No Hearing needs: No Vision needs: No Review of Systems Neuro Reports confusion Psych Reports confusion Physical Exam Vital Signs: Last Vital Signs Pulse 64 12/04/24 08:25 BP 110/66 12/04/24 08:25 Pulse Ox 97 12/04/24 08:25 Oxygen Delivery Method Room Air 12/04/24 08:25 BMI result Body Mass Index 23.9 Const General: cooperative, healthy appearing, comfortable, no acute distress and confusion Nutritional Appearance: average body habitus Orientation/consciousness: oriented to person and confusion Eyes Pupils: Equal, round and reactive pupils present Neuro General: oriented to person, gait normal, tone normal, moves all extremities, no focal motor deficits and confusion Cranial nerves: Yes Equal, round and reactive pupils present, Yes Bilaterally intact EOM present, Yes Nystagmus not present, Yes Normal facial strength present, Yes Midline tongue present, Yes Symmetric palate elevation present and Yes Ability to bilaterally elevate shoulders present Cognition (Neuro): abnormal cognition Gait exam (Neuro): Normal gait present Motor exam (neuro): 5/5 motor strength present throughout and Normal motor muscle tone present throughout Deep tendon reflexes (DTR's): Right triceps reflex intensity grade: 1+, Left triceps reflex intensity grade: 1+, Rt Biceps (C5, C6): 1+, Left biceps reflex intensity grade: 1+, Right brachioradialis reflex intensity grade: 1+, Left brachioradialis reflex intensity grade: 1+, Right patellar reflex intensity grade: 1+ and Left patellar reflex intensity grade: 1+ Coordination: [id number]-[id number] test normal Orientation What is the (year) (season) (date) (day) (month)?: year, season and day Where are we (state) (county) (town or city) (hospital) (floor)?: state, hospital/clinic and floor Registration Name of 3 unrelated objects clearly and slowly, then ask patient to repeat all 3 of them. (1st repeat determines score. Make sure they can repeat all three): object 1, object 2 and object 3 Recall Ask patient to repeat the 3 items from question #3.: object 1, object 2 and object 3 Language Show patient a wristwatch & ask what it is. Repeat for pencil.: watch and pencil Ask the patient to repeat the phrase 'No ifs, ands, or buts' after you.: correct Ask the patient to 'take a piece of paper with their right hand' 'fold paper in half' 'place paper on floor': take paper in right hand, fold paper in half and place paper on floor Print the sentence 'CLOSE YOUR EYES' on a piece. If patient actually closes eyes then score.: followed written direction Score Score: 19 Assessment & Plan Assessment & Plan (1) Memory loss: Comment: ap vascular demnetia worsened by mood and poor sleep Code(s): R41.3 - Other amnesia Category: Medical (2) Snoring: Code(s): R06.83 - Snoring Category: Medical Plan I will evaluate him with MRI Brain , Check hsi ESR TSH VIT B 12 levels CBC CMP Home sleep test to r/o sleep apnea I will trial him on memantine XR 7 mg qd Risk factor modification discussed Orders: Orders MR head/brain wo con Today R41.3 - Other amnesia Erythrocyte Sedimentation Rate Today R41.3 - Other amnesia RT home sleep study Today G47.00 - Insomnia, unspecified, R06.83 - Snoring Vitamin B12 and Folate Today R41.3 - Other amnesia Medications: New memantine 7 mg PO DAILY 30 ea 0RF Coding Level of Care Code New Pt Level 4 (67505) Complex EM visit Add On G2211 Diagnoses Memory loss R41.3 Snoring R06.83
--- OUTSIDE RECORDS SUMMARY | 2024-12-04 09:51 | XMS_ITS | Continuity of Care Document ---
Author Organization [facility] [address] [place] [address] Phone [phone] Care Team Providers Care Rn Obgyn Name Role Phone Roland Fredy Care Team Information Therapeutic Consultant + [phone] Melinda Asif MD Care Team Information Receiv er [phone] Problems Active Problems Provider Date Type 2 [...] 2units Juan Ronquillo M.D. 03/01/2024 Freestyle Jimenez 3/[place]/Glucose Monitoring [id number] Device use with sensors to check blood sugar dx:e11.9 1units E11.9 Juan Ronquillo M.D. 08/10/2023 [id number] Tablets Take One Tablet By Mouth Twice A Day as Needed For Pain Fredy Watkins Zolpidem Thpnmfph29uf Tablets [place] Bernadine Tableta Via Oral Al Acostarse [place] Unknown Bupropion Hydrochloride ER (XL)150mg Tablets ER 24HR [place] Bernadine Tableta Via Oral Cada [place] Unknown Wwrehdx546Wqcf/ML Solution Inject 5-7 Units Subcutaneous With Meals Three Times A Day. Fredy Watkins Ygldmm793Ecof/ML Solution Inject 12 Units Subcutaneously Every Evening Fredy Watkins Freestyle Lite TestStrips Use 1 Strip as Directed 3 Times A Day Melinda Stevens Vitamin D High Xhovoso53mgc (1000 Ut) Capsules [place] Bernadine Capsula Via Oral Cada Marily Fredy Watkins [id number] Tablets [place] Bernadine Tableta Via Oral Cada Marily Fredy Watkins Atorvastatin Zrewyya24hr Tablets Take One Tablet By Mouth Every [...] Inhouse Glucose Fingerstick 100 Gad65 Autoantibodies 09/27/2022 [facility] Gad65 Autoantibodies <5.0 1 Hemoglobin A1c 09/27/2022 Inhouse Hemoglobin A1c 7.8% Glucose Fingerstick 09/27/2022 Inhouse Glucose Fingerstick 182 1 Reference range: 0.0 to 5.0 Unit: U/mL Test performed at Lab[address] [address] Procedures Date Code Description Status 08/30/2024 74781 Glucose Monitoring Interpeta tion And Report Completed 11/17/2023 36090 Glucose Monitoring Interpeta tion And Report Completed [...]
== END 2024-12-04 08:59 | disposition home or self-care (01) ==
LOC: HO.HSMS 08:22
PROVIDERS: PCP Internal Medicine; Visit Provider Psychiatry & Neurology Neurology
DX: R41.3 Other amnesia (principal); R06.83 Snoring
CPT/HCPCS: 99204; G2211

== ENCOUNTER 2024-12-27 18:09 | Outpatient (REF) | payer OTHER, SELFPAY ==
--- NOTE | ~2024-12-27 | MR_ITS ---
CLINICAL HISTORY: R41.3 - Other amnesia MR Brain without gadolinium Comparison: None provided Findings: No significant atrophy. No hydrocephalus. Ventricles are normal in position with no midline shift or herniation. No restricted diffusion. No territorial infarct. No intra-axial or extra-axial hemorrhage. No focal mass lesion or mass effect on this unenhanced study. Bilateral supratentorial punctate white matter hyperintensities most suggestive of chronic small-vessel ischemic changes. Orbital contents are unremarkable. Right maxillary sinus small mucous retention cyst/polyp. Otherwise sinuses and mastoid air cells are clear. No focal bone lesion. IMPRESSION: 1. No acute findings. 2. Nonspecific supratentorial white matter hyperintensities most suggestive of chronic small-vessel ischemic changes. This document has been electronically signed by: Caron Narvaez MD on 12/28/2024 17:10:28
== END 2024-12-27 18:10 | disposition home or self-care (01) ==
LOC: HO.MRI 18:09
PROVIDERS: PCP Internal Medicine; Visit Provider Psychiatry & Neurology Neurology
DX: R41.3 Other amnesia (principal)
CPT/HCPCS: 70551

== ENCOUNTER → 2024-12-27 18:20 | Outpatient (BNV) | payer OTHER, SELFPAY | PROVIDERS: PCP Internal Medicine; Visit Provider Specialist | DX: R41.3 Other amnesia (principal) | CPT/HCPCS: 70551 ==

== ENCOUNTER 2025-01-23 07:32 | Outpatient (REF) | payer OTHER, SELFPAY ==
--- OUTSIDE RECORDS SUMMARY | 2025-01-23 07:34 | XMS_ITS | Continuity of Care Document ---
Author Organization [facility] [address] [place] [address] Phone [phone] Care Team Providers Care Imagery Intelligence Name Role Phone Roland Fredy Care Team Information Driver Sales [phone] Melinda Asif MD Care Team Information Receiv er [phone] Problems Active Problems Provider Date Type 2 [...] 2units Juan Ronquillo M.D. 03/01/2024 Freestyle Jimenez 3/[place]/Glucose Monitoring [id number] Device use with sensors to check blood sugar dx:e11.9 1units E11.9 Juan Ronquillo M.D. 08/10/2023 [id number] Tablets Take One Tablet By Mouth Twice A Day as Needed For Pain Fredy Watkins Zolpidem [id number] Tablets [place] Bernadine Tableta Via Oral Al Acostarse [place] Ne[place] Unknown Bupropion Hydrochloride ER (XL)150mg Tablets ER 24HR [place] Bernadine Tableta Via Oral Cada [place] Unknown Vdikwsz263Crle/ML Solution Inject 5-7 Units Subcutaneous With Meals Three Times A Day. Fredy Watkins Sbposl377Vxzg/ML Solution Inject 12 Units Subcutaneously Every Evening Fredy Watkins Freestyle Lite TestStrips Use 1 Strip as Directed 3 Times A Day Melinda Stevens Vitamin D High [id number] (1000 Ut) Capsules [place] Bernadine Capsula Via Oral Cada Marily Fredy Watkins [id number] Tablets [place] Bernadine Tableta Via Oral Cada Marily Fredy Watkins Atorvastatin [id number] Tablets Take One Tablet By Mouth Every [...] Inhouse Glucose Fingerstick 100 Gad65 Autoantibodies 09/27/2022 [facility] Gad65 Autoantibodies <5.0 1 Hemoglobin A1c 09/27/2022 Inhouse Hemoglobin A1c 7.8% Glucose Fingerstick 09/27/2022 Inhouse Glucose Fingerstick 182 1 Reference range: 0.0 to 5.0 Unit: U/mL Test performed at [address] [address] Procedures Date Code Description Status 08/30/2024 69855 Glucose Monitoring Interpeta tion And Report Completed 11/17/2023 33348 Glucose Monitoring Interpeta tion And Report Completed [...]
[2025-01-23 10:33] LABS: MANUAL DIFF FLAG NO
[2025-01-23 10:54] LABS: Hematocrit 49.3 % (42.0-52.0); Hemoglobin 15.6 g/dl (14.0-18.0); Imm Gran Abs Auto 0.02 X10*3/uL (0.00-0.03); Imm Gran Pct Auto 0.3 % (0.0-0.4); Lymphocytes Absolute Auto 1.5 X10*3/uL (1.2-4.9); Mean Corpuscular HGB Conc 31.6 g/dl (31.0-36.0); Mean Corpuscular Hemoglobin 29.0 pg (27.0-33.0); Mean Corpuscular Volume 91.6 fL (80.0-98.0); NRBC Abs Auto 0.000 X10*3/uL (0.0-0.012); NRBC Pct Auto 0.0 /100WBC (0.0-0.2); Platelet Count 290 X10*3/uL (160-400); Red Blood Count 5.38 X10*6/uL (4.60-5.80); White Blood Count 6.7 X10*3/uL (4.8-10.8)
[2025-01-23 10:59] LABS: Microalbum/Creatinine Ratio Ur 18.0 ug/mg cr (<30)
[2025-01-23 11:18] LABS: Alanine Aminotransferase 45 U/L (0-40); Albumin Level 4.2 g/dL (3.5-5.0); Alkaline Phosphatase 99 U/L (39-117); Anion Gap 9 (12-20); Aspartate Amino Transferase 44 U/L (5-37); Blood Urea Nitrogen 17 mg/dL (9-16); Calcium 9.0 mg/dL (8.4-10.2); Carbon Dioxide 25 mmol/L (22-29); Chloride 111 mmol/L (96-108); Cholesterol 126 mg/dL (<200); Estimated Glomerular Filt Rate > 60; HDL Cholesterol 40 mg/dL (>40); Potassium 4.2 mmol/L (3.3-5.1); Sodium 141 mmol/L (135-145); Total Protein 7.5 g/dL (6.5-8.0); Triglycerides 42 mg/dL (<150)
[2025-01-23 11:23] LABS: Thyroid Stimulating Hormone 0.64 uIU/mL (0.32-4.0)
== END 2025-01-23 07:33 | disposition home or self-care (01) ==
LOC: HO.10HDL 07:32
PROVIDERS: Visit Provider Internal Medicine
DX: E11.69 Type 2 diabetes mellitus with other specified complication (principal); E78.5 Hyperlipidemia, unspecified; E55.9 Vitamin D deficiency, unspecified; R80.9 Proteinuria, unspecified; R41.3 Other amnesia
CPT/HCPCS: 36415; 80053; 80061; 82043; 82306; 82570; 84443; 85025

== ENCOUNTER 2025-02-05 08:10 | Outpatient (AMB) | payer OTHER, SELFPAY ==
--- NOTE | 2025-02-05 08:14 | A.OFFPC_ITS ---
Vital Signs 02/05/25 08:15 Height 5 ft 8 in Weight 155 lb 2 oz BMI 23.6 BP 110/70 Blood Pressure Location Lt brachial Position Sitting Pulse 69 Pulse Source Pulse Oximeter Temp 97.3 F Temp Source Temporal Artery Scan Pulse Oximetry (%) 96 Oxygen Delivery Method Room Air Intake Visit Reasons: dm Intake Note: Patient is here to follow up on DM. Planning Assistant Required: Yes Planning Assistant Language: Stretcher And Drier Name: Yodit (daughter) Information Interpreted: non-clinical & clinical (Pt decline bicycle mechanic service prefer daughter to translate for him) Machinist Instructor: Present Accompanied by: Daughter Allergies No Known Allergies (No Known Allergies*) Allergy (Verified 02/05/25 08:43) Medication List - Last Reconciled 02/05/25 by Melinda Lindsay MD atorvastatin 40 mg PO DAILY 90 days [bed rails As directed] blood sugar diagnostic (FreeStyle Lite Strips) 1 strip miscellaneous TID 90 days blood-glucose meter (FreeStyle Lite Meter kit) As directed bupropion HCl XL 1 tab PO BEDTIME cane As directed cholecalciferol (vitamin D3) 25 mcg PO DAILY 90 days empagliflozin (Jardiance) 25 mg PO DAILY 90 days glucose (Dex4 Glucose) 12 grams (3 x 4 gram) PO Q15M PRN insulin aspart U-100 (Novolog U-100 Insulin aspart) 5-7 units with meals subcut 3 times a day; 30 days insulin glargine (Lantus U-100 Insulin) 15 units (0.15 mL) subcut QPM 30 days insulin syringe-needle U-100 1 each miscellaneous 4 times a day; lancets (FreeStyle Lancets) Three times a day [Medline Remedy with Olivamine Skin Repair Cream As directed] memantine 7 mg PO DAILY naproxen 500 mg PO BID PRN omeprazole 20 mg PO DAILY pen needle, diabetic (BD Bharati 2nd Gen Pen Needle) 5 times a day [shower chair As directed] tirzepatide (Mounjaro) 2.5 mg subcut QWEEK [walker As directed] zolpidem 10 mg PO BEDTIME PRN Tobacco use date assessed: 02/05/25 Fall risk assessment: No Falls in past year Last assessed Fall Risk: 02/05/25 Dental Screening Dental Screen Date: 09/27/24 HPI HPI Comments History of Present Illness Details The patient is a 65-year-old male presenting for a follow-up visit for his chronic conditions. He has no known drug allergies. His current medications include atorvastatin 40 mg for hyperlipidemia, bupropion for depression, vitamin D, Jardiance 25 mg for diabetes, and Novolog with meals. He also takes omeprazole for acidity and memantine for cognitive impairment. His A1c is within goal being 6.2%. LDL being close to goal being 78. His bupropion and sleep medication are managed by a psychiatrist. He is followed by a neurologist for cognitive impairment and memory loss; a prior brain MRI showed chronic small vessel disease without other acute findings. The patient denies any history of smoking or alcohol use. [facility] Medical History (Updated 02/05/25 @ 08:55 by Melinda Lindsay MD) Snoring Hyperlipidemia associated with type 2 diabetes mellitus Hx of renal calculi Depression Vitamin D deficiency Overweight (BMI 25.0-29.9) custodial (current) use of insulin Dyslipidemia Diabetes type 2, uncontrolled Surgical History Hx of shoulder surgery Hx of colonoscopy Hx of lithotripsy Family History Mother Diabetes Father Alcoholism Other Substance use disorder Social History Housing: Apartment Alcohol intake: never Patient Tobacco Use Status: Never used Tobacco Tobacco use type: Cigarette e-Cigarette/Vaping Use: Never Used Second Hand Smoke Exposure: No service: No Current occupational status: disabled Current occupation: rt handed Cognitive needs: No Hearing needs: No Vision needs: No Questionnaire Thrive Questionnaire Date Thrive assessed: 09/27/24 I am a: Patient What is your living situation today?: I have a steady place to live Within the past 12 months, did the food you bought not last and you didn't have the money to get more?: Never true Within the past 12 months, did you worry whether your food would run out before you got money to buy more?: Never true Do you have trouble paying for medicines?: No Do you have trouble getting transportation to medical appointments?: No Do you have trouble paying your heating and electricity bill?: No Do you have trouble taking care of your child, family member or friend?: No Do you have trouble with day-to-day activities such as bathing, preparing meals, shopping, managing finances, etc.?: No Are you currently unemployed and looking for a job?: Yes Are you interested in more education?: Yes Please select the resources that you would like help with: None Currently or been in a relationship where the following occur: No concerns reported THRIVE Score: 0 GALEN-7 AMB Questionnaire GALEN-7 Date GALEN - 7 assessed: 09/27/24 Source: Developed by Drs. Juve Hutton, Huong Shannon, Bryon Reis and colleagues, with an educational murray from [employer]. Review of Systems Const All systems reviewed & are unremarkable except as noted in HPI and below Card Denies chest pain at rest, Denies chest pain with activity, Denies edema, Denies irregular heart rhythm, Denies claudication, Denies orthopnea, Denies paroxysmal nocturnal dyspnea and Denies slow heart rate Skin/Breast Denies bleeding lesions, Denies changing lesions and Denies rash Physical exam (Primary Care) Vital Signs: Last Vital Signs Temp 97.3 F 02/05/25 08:15 Pulse 69 02/05/25 08:15 BP 110/70 02/05/25 08:15 Pulse Ox 96 02/05/25 08:15 Oxygen Delivery Method Room Air 02/05/25 08:15 BMI result Body Mass Index 23.6 Tobacco/Smoking Status: Tobacco use Status Tobacco use date assessed 02/05/25 02/05/25 08:23 Patient Tobacco Use Status Never used Tobacco 02/05/25 08:23 Tobacco use type Cigarette 02/05/25 08:23 e-Cigarette/Vaping Use Never Used 02/05/25 08:23 Thrive Assessment: Date of Thrive Assessment Date Thrive assessed 09/27/24 02/05/25 08:23 Currently or been in a relationship where the following occur: No concerns reported Resp Effort & Inspection: normal respiratory effort Auscultation: clear to auscultation bilaterally Cardio Jugular venous distension: no JVD Rate: regular rate Rhythm: regular rhythm Heart sounds: S1 normal heart sound present and S2 normal heart sound present Extrem General: Yes full ROM Results AMB Hemoglobin A1c AMB Hemoglobin A1c 6.2 % Last Edit by LOLA House on 02/05/25 08:28 Results Reviewed Results Reviewed: Laboratory Last Values Hgb A1c (Clinic) 6.2 % (4.0-6.0) H 02/05/25 08:14 Coding Level of Care Code Est Pt Level 4 (48910) Complex EM visit Add On G2211 Diagnoses Diabetes mellitus, with long-term current use of insulin E11.9; Z79.4 Hyperlipidemia associated with type 2 diabetes mellitus E11.69; E78.5 Moderate recurrent major depression F33.1 Chronic GERD K21.9 Time Spent (min) 22 Assessment & Plan Assessment & Plan (1) Diabetes mellitus, with long-term current use of insulin: Code(s): E11.9 - Type 2 diabetes mellitus without complications; Z79.4 - nuclear monitoring technician (current) use of insulin Category: Medical (2) Hyperlipidemia associated with type 2 diabetes mellitus: Code(s): E11.69 - Type 2 diabetes mellitus with other specified complication; E78.5 - Hyperlipidemia, unspecified Category: Medical (3) Moderate recurrent major depression: Code(s): F33.1 - Major depressive disorder, recurrent, moderate Category: Medical (4) Chronic GERD: Code(s): K21.9 - Gastro-esophageal reflux disease without esophagitis Category: Medical Plan Plan 1. Hyperlipidemia, unspecified E78.5 Recent labs show an LDL of 1078 mg/dL and total cholesterol of 1026 mg/dL. No changes will be made to his atorvastatin 40 mg at this time. 2. Type 2 diabetes mellitus without complications E11.9 HCC 19 The patient's Hemoglobin A1c is 6.2% with a fasting glucose of 123 mg/dL. He will continue his current regimen of Jardiance 25 mg and Novolog with meals. 3. Gastro-esophageal reflux disease without esophagitis K21.9 Continue PPIs prn. 4. Major depressive disorder, recurrent, moderate F33.1 HCC 59 Continue Bupropion. Follow up with psychiatry. Orders: Orders AMB Hemoglobin A1c Today E11.649 - Type 2 diabetes mellitus with hypoglycemia without coma, E11.69 - Type 2 diabetes mellitus with other specified complication, E78.5 - Hyperlipidemia, unspecified US abdomen limited Today K42.9 - Umbilical hernia without obstruction or gangrene Comprehensive [place]. Panel Fast 4 Months E11.9 - Type 2 diabetes mellitus without complications, Z79.4 - custodial (current) use of insulin Lipid Panel 4 Months E78.5 - Hyperlipidemia, unspecified Microalbumin, Random (w Creat) 4 Months R80.9 - Proteinuria, unspecified Vitamin D 25-OH Total 4 Months E55.9 - Vitamin D deficiency, unspecified
[2025-02-05 08:15] VITALS: BP 110/70; PULSE 69; TEMP 36.3; O2SAT 96; BMI 23.6
== END 2025-02-05 08:57 | disposition home or self-care (01) ==
PROVIDERS: PCP Internal Medicine; Visit Provider Internal Medicine
DX: E11.69 Type 2 diabetes mellitus with other specified complication (principal); Z79.4 Long term (current) use of insulin; E78.5 Hyperlipidemia, unspecified; F33.1 Major depressive disorder, recurrent, moderate; K21.9 Gastro-esophageal reflux disease without esophagitis; E11.649 Type 2 diabetes mellitus with hypoglycemia without coma

== ENCOUNTER → 2025-02-05 08:10 | Outpatient (BNVA) | payer OTHER, SELFPAY | PROVIDERS: PCP Internal Medicine; Visit Provider Internal Medicine | DX: E11.69 Type 2 diabetes mellitus with other specified complication (principal); E78.5 Hyperlipidemia, unspecified; F33.1 Major depressive disorder, recurrent, moderate; K21.9 Gastro-esophageal reflux disease without esophagitis; Z79.4 Long term (current) use of insulin | CPT/HCPCS: 83036; 99212 ==

== ENCOUNTER → 2025-02-20 10:39 | Outpatient (REF) | payer OTHER, SELFPAY | LOC: HO.SL 10:39 | PROVIDERS: PCP Internal Medicine; Visit Provider Psychiatry & Neurology Neurology | DX: R06.83 Snoring (principal); G47.10 Hypersomnia, unspecified; G47.00 Insomnia, unspecified; R40.0 Somnolence | CPT/HCPCS: 95806 ==

== ENCOUNTER → 2025-02-20 10:55 | Outpatient (BNV) | payer OTHER, SELFPAY | PROVIDERS: PCP Internal Medicine; Visit Provider Psychiatry & Neurology Neurology | DX: G47.10 Hypersomnia, unspecified (principal) | CPT/HCPCS: 95806 ==

== ENCOUNTER 2025-03-15 09:31 | Outpatient (REF) | payer OTHER, SELFPAY ==
--- NOTE | ~2025-03-15 | US_ITS ---
CLINICAL HISTORY: K42.9 - Umbilical hernia without obstruction or gangrene Targeted soft tissue ultrasound Comparison: None available Findings: Grayscale and color Doppler images were obtained of the area of concern with a high-frequency linear transducer. Superior to the umbilicus there is a fat containing hernia measuring 4.0 x 1.4 x 3.4 cm. The hernia opening measures 1.3 cm. Impression: Fat containing supraumbilical hernia measuring 4.0 cm. This document has been electronically signed by: Adwoa Mendoza MD on 03/15/2025 16:22:39
--- OUTSIDE RECORDS SUMMARY | 2025-03-15 09:35 | XMS_ITS | Continuity of Care Document ---
Author Organization [facility] [address] [place] [address] Phone [phone] Care Team Providers Care Hydroelectric Production Technician Name Role Phone Roland Fredy Care Team Information Railroad Brake Repairer + [phone] Melinda Asif MD Care Team Information Receiv er [phone] Problems Active Problems Provider Date Type 2 [...] M.D. 08/20/2024 Mounjaro2.5mg/0.5ML Solution Auto-Inject Inject 0.5 milliliters Into The Skin Weekly (Subcutaneous). 2units Juan Ronquillo M.D. 03/01/2024 Freestyle Jimeenz 3/[place]/Glucose Monitoring Ohvmyx7Xxiqut Device use with sensors to check blood sugar dx:e11.9 1units E11.9 Juan Ronquillo M.D. 08/10/2023 [id number] Tablets Take One Tablet By Mouth Twice A Day as Needed For Pain Fredy Watkins Zolpidem Skhqwrsr33nx Tablets [place] Bernadine Tableta Via Oral Al Acostarse [place] Unknown Bupropion Hydrochloride ER (XL)150mg Tablets ER 24HR [place] Bernadine Tableta Via Oral Cada [place] Unknown Jfqcypv486Uufg/ML Solution Inject 5-7 Units Subcutaneous With Meals Three Times A Day. Fredy Watkins Pdkzzj620Wavx/ML Solution Inject 12 Units Subcutaneously Every Evening Fredy Watkins Freestyle Lite TestStrips Use 1 Strip as Directed 3 Times A Day Melinda Stevens Vitamin D High Zzcwuqh76yru (1000 Ut) Capsules [place] Bernadine Capsula Via Oral Cada Marily Fredy Watkins Xrcqqffmx21vn Tablets [place] Bernadine Tableta Via Oral Cada Marily Fredy Watkins Atorvastatin Vtzmxrk95xz Tablets Take One Tablet By Mouth Every Day Fredy Watkins History Medications Freestyle Jimenez 2 Plus/Sensor/Flash Glucose Monitor SystemMisc Apply as Directed; Change Sensor Every 14 Days. E11.9 Juan Ronquillo M.D. 08/20/2024 - 08/20/2024 Vital Signs Date Vital Result Comment 01/24/2025 10:09am BP Systolic 100 mmHg BP Diastolic 70 mmHg Heart Rate 72 /min Height 66.5 inches 5'6.50 Weight 157.12 lb BMI (Body Mass Index) 25.0 kg/m2 Results Test Acquired Date Facility Test Result H/L Range N ote Hemoglobin A1c 01/24/2025 Inhouse Hemoglobin A1c 6.3% Glucose Fingerstick 01/24/2025 Inhouse Glucose Fingerstick 121 Hemoglobin A1c 08/30/2024 Inhouse Hemoglobin A1c 6.4% [...] Inhouse Glucose Fingerstick 100 Gad65 Autoantibodies 09/27/2022 [facility] Gad65 Autoantibodies <5.0 1 Hemoglobin A1c 09/27/2022 Inhouse Hemoglobin A1c 7.8% Glucose Fingerstick 09/27/2022 Inhouse Glucose Fingerstick 182 1 Reference range: 0.0 to 5.0 Unit: U/mL Test performed at [address] [address] Procedures Date Code Description Status 01/24/2025 14368 Glucose Monitoring Interpeta tion And Report Completed 08/30/2024 89808 Glucose Monitoring Interpeta tion And Report Completed 11/17/2023 58837 Glucose Monitoring Interpeta tion And Report Completed Medical Devices Description No Information Available Encounters Type Date Location Provider Dx Diagnosis Office Visit 01/24/2025 10:00a Main Office Juan Ronquillo M.D. E11.9 Type 2 diabetes mellitus without complications Assessments Date Code Description Provider 01/24/2025 E11.9 Type 2 diabetes mellitus without complications Juan Ronquillo M.D. Plan of Treatment Future Appointment(s):* 05/30/2025 10:15 am - Juan Ronquillo M.D. at Main Office 08/30/2024 - Juan Ronquillo M.D.* E11.9 Type 2 diabetes mellitus without complications Functional Status Description No Information Available Mental Status Description No Information Available Referrals Description No Information Available
== END 2025-03-15 09:32 | disposition home or self-care (01) ==
LOC: HO.US 09:31
PROVIDERS: PCP Internal Medicine; Visit Provider Internal Medicine
DX: K42.9 Umbilical hernia without obstruction or gangrene (principal)
CPT/HCPCS: 76705

== ENCOUNTER → 2025-03-15 09:33 | Outpatient (BNV) | payer OTHER, SELFPAY | PROVIDERS: PCP Internal Medicine; Visit Provider Radiology Diagnostic Radiology | DX: K42.9 Umbilical hernia without obstruction or gangrene (principal) | CPT/HCPCS: 76705 ==